=== PATIENT | female | born 1995 | race Caucasian/White ===

== ENCOUNTER → 2016-06-16 | Outpatient (CLI) | payer MEDICAID ==
--- NOTE | 2016-06-16 10:03 | US ---
EXAMINATION TYPE: US OB >= 14 wk fetus DATE OF EXAM: 06/16/2016 9:15 AM COMPARISON: 02/21/17 CLINICAL HISTORY: Large For Dates O36.63XO TECHNIQUE: TA GESTATIONAL AGE / DATING Physician Established: (35 weeks/0 days) EDC: 07/21/2016 Dates by LMP: unknown Dates by First Scan: (34 weeks/3 days) EDC: 07/25/2016 Dates by Current Scan: (35 weeks/0 days) EDC: 07/21/2016 SURVEY PLACENTA: fundal left sided PREVIA: no YVROSE: 15.2cm CERVICAL LENGTH (transabdominal: norm > 3.0cm): 3.5cm BIOMETRY PRESENTATION: veretex BPD: 9.0cm 36 weeks / 3 days HC: 32.1 cm 36 weeks / 2 days AC: 31.1 cm 35 weeks / 0 days FL: 6.2 cm 32 weeks / 1 days ESTIMATED WEIGHT IN GRAMS: 2446 grams ESTIMATED WEIGHT IN LBS/OZS: 5 lbs. 6 oz. WEIGHT PERCENTAGE BASED ON ESTABLISHED DATES: 32% HC/AC: 1.0 FL/AC: 20.0 HEART RATE: 126 bpm RHYTHM: Normal TECHNOLOGIST IMPRESSION: 35w0d fetus seen and appears wnl at this time IMPRESSION: 1. Single intrauterine gestation estimated at 35 weeks 0 days gestation based on the current ultrasou nd measurements. Cardiac activity measures 127 bpm. 2. Femur length is slightly shortened causing ratio abnormalities outside the normal range.
== END | disposition home or self-care (01) ==
LOC: RADUSWWP 08:55
PROVIDERS: ATTEND Obstetrics & Gynecology
DX: O36.63X0 Maternal care for excessive fetal growth, third trimester, not applicable or unspecified (principal); Z3A.35 35 weeks gestation of pregnancy
CPT/HCPCS: 76805

== ENCOUNTER 2016-07-23 06:00 | Inpatient (IN) | payer MEDICAID ==
[2016-07-23] MEDS ORDERED: CARBOPROST TROMETHAMINE 250 MCG/ML 1 ML AMP IM PRN (06:14)
[2016-07-23] MEDS ORDERED: METHYLERGONOVINE 0.2 MG/ML 1 ML AMP IM PRN (06:14)
[2016-07-23] MEDS ORDERED: TERBUTALINE 1 MG/ML VIAL SQ PRN (06:14)
[2016-07-23] MEDS ORDERED: OXYTOCIN 10 UNIT/ML 1 ML VIAL IM PRN (06:14)
[2016-07-23] MEDS ORDERED: LIDOCAINE 1% (PF) 10 MG/ML (30 ML SDV) SQ PRN (06:14)
[2016-07-23] MEDS ORDERED: OXYTOCIN 30 UNITS/500 ML NS 30 UNIT in SALINE 1 500ML.BAG IV SCH (06:15)
[2016-07-23 06:23] VITALS: BMI 27.8
[2016-07-23] MEDS: LACTATED RINGERS 1,000 ML IV SCH ×3 (06:36→10:10)
[2016-07-23 06:48] LABS: Basophils # (A) 0.1 k/uL (0-0.2); Basophils % (A) 0 %; CH 30.5; CHCM 33.7; Eosinophils # (A) 0.5 k/uL (0-0.7); Eosinophils % (A) 4 %; HCT 37.8 % (34.0-46.0); HGB 12.8 gm/dL (11.4-16.0); Luc # (Auto) 0.33; Luc % (Auto) 3; Lymphocytes % (A) 24 %; MCH 30.9 pg (25.0-35.0); MCV 90.9 fL (80.0-100.0); Monocytes # (A) 0.6 k/uL (0-1.0); Monocytes % (A) 5 %; Neutrophils # (A) 8.3 k/uL (1.3-7.7); Neutrophils % (A) 65 %; RBC 4.16 m/uL (3.80-5.40); RDW 12.8 % (11.5-15.5); WBC 12.8 k/uL (3.8-10.6); WBC (Perox) 13.61
--- NOTE | 2016-07-23 08:38 | P.HPOB ---
History of Present Illness H&P Date: 07/23/16 Chief Complaint: induction of labor 21-year-old presents at 30 weeks and 2 days for induction of labor. Her cervix is 1-2 cm dilated, 90% effaced, and -2 station. She is aries irregularly. heart tones are 135-140 with moderate variability and reactive. Review of Systems All systems: negative Constitutional: Denies chills, Denies fever Eyes: denies blurred vision, denies pain Ears, nose, mouth and throat: Denies headache, Denies sore throat Cardiovascular: Denies chest pain, Denies shortness of breath Respiratory: Denies cough Gastrointestinal: Denies abdominal pain, Denies diarrhea, Denies nausea, Denies vomiting Genitourinary: Denies dysuria, Denies hematuria Musculoskeletal: Denies myalgias Integumentary: Denies pruritus, Denies rash Neurological: Denies numbness, Denies weakness Psychiatric: Denies anxiety, Denies depression Endocrine: Denies fatigue, Denies weight change Past Medical History Past Medical History: No Reported History Additional Past Medical History / Comment(s): Obstetric history: This is her second . She's had care with me since the first trimester. History of Any Multi-Drug Resistant Organisms: None Reported Additional Past Surgical History / Comment(s): cyst removed from back Past Anesthesia/Blood Transfusion Reactions: No Reported Reaction Past Psychological History: No Psychological Hx Reported Smoking Status: Never smoker Past Alcohol Use History: None Reported Past Drug Use History: None Reported - Past Family History Mother Family Medical History: No Reported History Medications and Allergies Home Medications Medication Instructions Recorded Confirmed Type Pnv with Ca,No.72/Iron/FA 1 tab PO DAILY 02/20/16 07/23/16 History [ Plus Tablet] Allergies Allergy/AdvReac Type Severity Reaction Status Date / Time No Known Allergies Allergy Verified 07/23/16 06:13 Exam Osteopathic Statement: *. No significant issues noted on an osteopathic structural exam other than those noted in the History and Physical/Consult. - Vital Signs Vital signs: Vital Signs Temp Pulse Resp BP Pulse Ox 07/23/16 06:12 97.3 F L 90 17 122/62 98 Intake and Output 07/22/16 07/23/16 07/23/16 22:59 06:59 14:59 Other: Weight 71.214 kg Heart: Regular rate and rhythm Lungs: Clear to auscultation bilaterally Abdomen: Soft, nontender Extremities: Negative Homans sign Results Result Diagrams: 07/23/16 06:25 Abnormal Lab Results - Last 24 Hours (Table) 07/23/16 Range/Units 06:25 WBC 12.8 H (3.8-10.6) k/uL Neutrophils # 8.3 H (1.3-7.7) k/uL Assessment and Plan (1) Normal labor Status: Acute Plan: 1. Induction of labor with amniotomy and Pitocin. 2. Anticipate normal vaginal delivery.
[2016-07-23] MEDS ORDERED: SODIUM CHLORIDE 0.9% 100 ML BAG ONE (09:57)
[2016-07-23] MEDS ORDERED: BUPIVACAINE (PF) 0.25% 30 ML VIAL ONE (09:57)
[2016-07-23] MEDS ORDERED: fentaNYL (PF) 50 MCG/ML 5 ML AMP ONE (09:57)
[2016-07-23] MEDS ORDERED: BUPIVACAINE (PF) 0.25% 25 ML, fentaNYL (PF) 200 MCG in SODIUM CHLORIDE 0.9% 71 ML EPIDURAL ONE (11:44)
[2016-07-23] MEDS ORDERED: Rhogam IMMUNE GLOBULIN 1,500 UNIT/1 ML IM ONE (17:19)
[2016-07-23] MEDS ORDERED: Acetaminophen-Codeine 300-30mg TAB PO PRN ×2 (17:19)
[2016-07-23] MEDS ORDERED: LANOLIN CREAM 5 GM TUBE TOPICAL PRN (17:19)
[2016-07-23] MEDS ORDERED: diphenhydrAMINE 25 MG CAP PO PRN (17:19)
[2016-07-23] MEDS ORDERED: BENZOCAINE/MENTHOL SPRAY 1 GM/SPRAY AEROSOL TOPICAL PRN (17:19)
[2016-07-23] MEDS ORDERED: diphenhydrAMINE 50 MG CAP PO PRN (17:19)
[2016-07-23] MEDS ORDERED: ACETAMINOPHEN TAB 325 MG TAB PO PRN (17:19)
[2016-07-23] MEDS ORDERED: HYDROCORTISONE 2.5% RECTAL CREAM 30 GM TUBE RECTAL PRN (17:19)
[2016-07-23] MEDS ORDERED: WITCH HAZEL 1 EACH MED..PAD TOPICAL PRN (17:19)
[2016-07-23] MEDS ORDERED: diphenhydrAMINE 50 MG/ML 1 ML VIAL IVP PRN ×2 (17:19)
[2016-07-23] MEDS ORDERED: SIMETHICONE 80 MG CHEWABLE PO PRN (17:19)
[2016-07-23] MEDS ORDERED: ZOLPIDEM 5 MG TAB PO PRN (17:19)
[2016-07-23] MEDS ORDERED: DIPH,PERTUS(ACELL)TETVAC-LF 0.5 ML VIAL IM ONE (17:20)
--- NOTE | 2016-07-23 17:22 | P.PROBDLV ---
Vaginal Delivery Note - . Vaginal Delivery Note: 21-year-old presents at 40 weeks and 2 days for induction of labor. Her cervix was 2 cm dilated, 80% effaced, -2 station. She is aries irregularly. heart tones 135-140 with moderate variability and reactive. Amniotomy was performed at 7:54 AM clear fluid noted. Pitocin was also started. She progressed about 3 cm and did get an epidural. Her cervix was completely dilated at 1558. She pushed, and delivered a viable male infant over intact perineum under epidural anesthesia at 1701. Head delivered OA, anterior shoulder delivered gentle downward traction followed by posterior shoulder and rest of body. Nose and mouth bulb suctioned, cord clamped and cut , placed mother's abdomen. Apgars 8, 9, weight 7 lbs. 5 oz. Cord blood was obtained. Placenta delivered spontaneously, intact with three-vessel cord at 1704. Vagina, cervix, and perineum were inspected. Second-degree midline laceration was repaired with 200, and 3-0 Vicryl. Estimated blood loss 200 mL. Mother and baby in stable condition.
[2016-07-23] MEDS: OXYTOCIN 30 UNITS/500 ML NS 30 UNIT in SALINE 1 500ML.BAG IV SCH (17:43)
[2016-07-23] MEDS: SENNOSIDES-DOCUSATE SODIUM 1 EACH TAB PO SCH (19:40)
[2016-07-23] MEDS: IBUPROFEN 600 MG TAB PO PRN (22:11)
[2016-07-24] MEDS: OXYTOCIN 30 UNITS/500 ML NS 30 UNIT in SALINE 1 500ML.BAG IV SCH (01:39)
[2016-07-24] MEDS: IBUPROFEN 600 MG TAB PO PRN ×2 (07:22→15:18)
[2016-07-24] MEDS: SENNOSIDES-DOCUSATE SODIUM 1 EACH TAB PO SCH (07:22)
--- NOTE | 2016-07-24 08:30 | P.DS ---
Providers Date of admission: 07/23/16 06:09 Expected date of discharge: 07/24/16 Attending physician: No Bryson Primary care physician: Stated None - Discharge Diagnosis(es) (1) Normal labor Current Visit: Yes Status: Resolved (2) Normal vaginal delivery Current Visit: Yes Status: Acute Hospital Course: Patient presented for induction of labor at 40 weeks and 2 days. She underwent normal vaginal delivery. course was complicated by some urinary retention but this had resolved within 12 hours. Patient is now voiding and ambulating without difficulty. She denies nausea, vomiting, chest pain, fever, chills, shortness of breath or any calf pain. She'll be discharged home day #1 in stable condition to follow-up with me in 6 weeks. Plan - Discharge Summary New Discharge Prescriptions: Acetaminophen-Codeine 300-30mg [Tylenol #3] 2 tab PO Q6H PRN #30 tablet PRN Reason: Pain Ibuprofen [Motrin] 600 mg PO Q6HR PRN #30 tab PRN Reason: Mild Pain Or Fever >= 100.5 Discharge Medication List Pnv with Ca,No.72/Iron/FA [ Plus Tablet] 1 tab PO DAILY 02/20/16 [ History] Acetaminophen-Codeine 300-30mg [Tylenol #3] 2 tab PO Q6H PRN #30 tablet [Rx] Ibuprofen [Motrin] 600 mg PO Q6HR PRN #30 tab 07/24/16 [Rx] Follow up Appointment(s)/Referral(s): No Bryson DO [Doctor of Osteopathic Medicine] - 6 Weeks Discharge Disposition: HOME SELF-CARE
[2016-07-24 08:45] VITALS: RESP 16
[2016-07-24 19:00] VITALS: BP 100/65; PULSE 98; TEMP 98.4
== END 2016-07-24 18:00 | disposition home or self-care (01) | DRG 775 ==
LOC: 4FBP 06:09
PROVIDERS: ADMIT Obstetrics & Gynecology; ATTEND Obstetrics & Gynecology
PROC: 10E0XZZ Delivery of Products of Conception, External Approach (ICD-10-PCS; principal; 2016-07-23)
PROC: 0KQM0ZZ Repair Perineum Muscle, Open Approach (ICD-10-PCS; 2016-07-23)
PROC: 3E033VJ Introduction of Other Hormone into Peripheral Vein, Percutaneous Approach (ICD-10-PCS; 2016-07-23)
PROC: 10907ZC Drainage of Amniotic Fluid, Therapeutic from Products of Conception, Via Natural or Artificial Opening (ICD-10-PCS; 2016-07-23)
PROC: 3E0S3NZ Introduction of Analgesics, Hypnotics, Sedatives into Epidural Space, Percutaneous Approach (ICD-10-PCS; 2016-07-23)
PROC: 3E0234Z Introduction of Serum, Toxoid and Vaccine into Muscle, Percutaneous Approach (ICD-10-PCS; 2016-07-24)
DX: O70.1 Second degree perineal laceration during delivery (principal); Z37.0 Single live birth; O48.0 Post-term pregnancy; R33.9 Retention of urine, unspecified; Z3A.40 40 weeks gestation of pregnancy; Z23 Encounter for immunization
CPT/HCPCS: 85025; 88307; 90715

== ENCOUNTER 2016-11-23 16:25 | Emergency (ER) | payer MEDICAID ==
[2016-11-23] MEDS ORDERED: SODIUM CHLORIDE 0.9% 1,000 ML IV STA (17:04)
[2016-11-23] MEDS ORDERED: ONDANSETRON 4 MG/2 ML VIAL IVP STA (17:04)
[2016-11-23 17:36] LABS: Basophils % (A) 0 %; CHCM 33.7; Eosinophils # (A) 0.1 k/uL (0-0.7); Eosinophils % (A) 1 %; HCT 42.1 % (34.0-46.0); HDW 2.21; HGB 14.4 gm/dL (11.4-16.0); Luc # (Auto) 0.19; Luc % (Auto) 1; Lymphocytes % (A) 16 %; MCH 29.4 pg (25.0-35.0); MCHC 34.1 g/dL (31.0-37.0); MCV 86.3 fL (80.0-100.0); Mean Platelet Volume 8.2; Monocytes # (A) 0.6 k/uL (0-1.0); Monocytes % (A) 4 %; Neutrophils # (A) 10.3 k/uL (1.3-7.7); Neutrophils % (A) 78 %; RBC 4.88 m/uL (3.80-5.40); RDW 12.8 % (11.5-15.5); WBC 13.2 k/uL (3.8-10.6); WBC (Perox) 13.18
[2016-11-23 17:40] LABS: Amorphous Sediment,Urine Rare /hpf; Appearance,Urine Cloudy (Clear); Bilirubin,Urine Negative (Negative); Glucose,Urine (UA) Negative (Negative); Ketones,Urine 1+ (Negative); Leukocyte Esterase,Urine Negative (Negative); Mucus,Urine Rare /hpf; Nitrite,Urine Negative (Negative); Particle Count 3338; Protein,Urine 1+ (Negative); RBC,Urine 1 /hpf (0-5); Specific Gravity,Urine 1.015 (1.001-1.035); Squamous Epithelial Cell,Urine 4 /hpf (0-4); UA Billing (MACRO vs. MICRO) MICRO; Urobilinogen,Urine <2.0 mg/dL (<2.0); WBC,Urine 5 /hpf (0-5)
[2016-11-23 17:46] LABS: ALT 58 U/L (9-52); AST 45 U/L (14-36); Alkaline Phosphatase 110 U/L (38-126); Anion Gap 12 mmol/L; Blood Urea Nitrogen 11 mg/dL (7-17); Calcium 10.2 mg/dL (8.4-10.2); Carbon Dioxide 24 mmol/L (22-30); Chloride 104 mmol/L (98-107); Glucose 90 mg/dL (74-99); Non-African American GFR(MDRD) >60 (>60 ml/min/1.73 sqM); Potassium 3.7 mmol/L (3.5-5.1); Sodium 140 mmol/L (137-145); Total Bilirubin 0.8 mg/dL (0.2-1.3); Total Protein 7.6 g/dL (6.3-8.2)
[2016-11-23 17:53] VITALS: BP 113/66; PULSE 76; RESP 16; TEMP 98.2
--- NOTE | 2016-11-23 18:02 | ED ---
General Adult HPI - General Chief complaint: Anxiety Stated complaint: Anxiety Time Seen by Provider: 11/23/16 16:57 Source: patient, RN notes reviewed Mode of arrival: EMS Limitations: no limitations - History of Present Illness Initial comments: 21-year-old female presents emergency room chief complaint of anxiety. Patient states that she drank last night and she's been throwing up all day today. Patient states that for the covers that she did throw up and she started having anxiety attack that she was throwing up her hands and feet went numb and she started to have some shortness of breath. Patient states once EMS got there she started to calm down the shortness of breath has completely gone as well as the medicine tingling in her hands and feet. Patient states that she still having some nausea. Patient denies any abdominal pain. Patient states that she believes it's due to the fact that she was drinking over the weekend evening before. Patient denies any other health concerns at this time. Patient denies any recent fever, chills, shortness of breath, chest pain, back pain, abdominal pain, numbness or tingling, dysuria or hematuria, constipation or diarrhea, headaches or visual changes, or any other current symptoms. - Related Data Home Medications Medication Instructions Recorded Confirmed Orsythia 1 tab PO DAILY 11/23/16 11/23/16 Allergies Allergy/AdvReac Type Severity Reaction Status Date / Time No Known Allergies Allergy Verified 11/23/16 17:17 Review of Systems ROS Statement: Those systems with pertinent positive or pertinent negative responses have been documented in the HPI. ROS Other: All systems not noted in ROS Statement are negative. Past Medical History Past Medical History: No Reported History Additional Past Medical History / Comment(s): Obstetric history: This is her second . She's had care with me since the first trimester. History of Any Multi-Drug Resistant Organisms: None Reported Additional Past Surgical History / Comment(s): cyst removed from back Past Anesthesia/Blood Transfusion Reactions: No Reported Reaction Past Psychological History: No Psychological Hx Reported Smoking Status: Never smoker Past Alcohol Use History: None Reported Past Drug Use History: None Reported - Past Family History Mother Family Medical History: No Reported History General Exam Limitations: no limitations General appearance: alert, in no apparent distress Head exam: Present: atraumatic, normocephalic, normal inspection Neck exam: Present: normal inspection. Absent: tenderness, meningismus, lymphadenopathy Respiratory exam: Present: normal lung sounds bilaterally. Absent: respiratory distress, wheezes, rales, rhonchi, stridor Cardiovascular Exam: Present: regular rate, normal rhythm, normal heart sounds. Absent: systolic murmur, diastolic murmur, rubs, gallop, clicks GI/Abdominal exam: Present: soft, normal bowel sounds. Absent: distended, tenderness, guarding, rebound, rigid Extremities exam: Present: normal inspection, full ROM, normal capillary refill. Absent: tenderness, pedal edema, joint swelling, calf tenderness Back exam: Present: normal inspection Neurological exam: Present: alert, oriented X3, CN II-XII intact Psychiatric exam: Present: normal affect, normal mood Skin exam: Present: warm, dry, intact, normal color. Absent: rash Course Vital Signs 11/23/16 11/23/16 16:29 17:51 Temperature 98.5 F 98.2 F Pulse Rate 85 76 Respiratory 18 16 Rate Blood Pressure 117/78 113/66 O2 Sat by Pulse 99 100 Oximetry Medical Decision Making - Medical Decision Making 21-year-old female presents emergency Department chief complaint of anxiety as well nausea vomiting. This and we did hydrate the patient reviewed her labs. We did discuss Elevated liver enzymes. Please follow-up and and return parameters. Patient's elevated white blood cell count is most likely reactive due to the vomiting. At this time we did discuss this with the patient and she is negative. The plan. At this time on her questions have been answered. At this time the patient is comfortable discharging she will be discharged home. - Lab Data Result diagrams: 11/23/16 17:10 11/23/16 17:10 Lab Results 11/23/16 11/23/16 11/23/16 Range/Units 17:10 17:10 17:10 WBC 13.2 H (3.8-10.6) k/uL RBC 4.88 (3.80-5.40) m/uL Hgb 14.4 (11.4-16.0) gm/dL Hct 42.1 (34.0-46.0) % MCV 86.3 (80.0-100.0) fL MCH 29.4 (25.0-35.0) pg MCHC 34.1 (31.0-37.0) g/dL RDW 12.8 (11.5-15.5) % Plt Count 251 (150-450) k/uL Neutrophils % 78 % Lymphocytes % 16 % Monocytes % 4 % Eosinophils % 1 % Basophils % 0 % Neutrophils # 10.3 H (1.3-7.7) k/uL Lymphocytes # 2.0 (1.0-4.8) k/uL Monocytes # 0.6 (0-1.0) k/uL Eosinophils # 0.1 (0-0.7) k/uL Basophils # 0.0 (0-0.2) k/uL Sodium 140 (137-145) mmol/L Potassium 3.7 (3.5-5.1) mmol/L Chloride 104 (98-107) mmol/L Carbon Dioxide 24 (22-30) mmol/L Anion Gap 12 mmol/L BUN 11 (7-17) mg/dL Creatinine 0.60 (0.52-1.04) mg/dL Est GFR (MDRD) Af Amer >60 (>60 ml/min/1.73 sqM) Est GFR (MDRD) Non-Af >60 (>60 ml/min/1.73 sqM) Glucose 90 (74-99) mg/dL Calcium 10.2 (8.4-10.2) mg/dL Total Bilirubin 0.8 (0.2-1.3) mg/dL AST 45 H (14-36) U/L ALT 58 H (9-52) U/L Alkaline Phosphatase 110 (38-126) U/L Total Protein 7.6 (6.3-8.2) g/dL Albumin 4.4 (3.5-5.0) g/dL Urine Color Urine Appearance (Clear) Urine pH (5.0-8.0) Ur Specific [place] (1.001-1.035) Urine Protein (Negative) Urine Glucose (UA) (Negative) Urine Ketones (Negative) Urine Blood (Negative) Urine Nitrite (Negative) Urine Bilirubin (Negative) Urine Urobilinogen (<2.0) mg/dL Ur Leukocyte Esterase (Negative) Urine RBC (0-5) /hpf Urine WBC (0-5) /hpf Ur Squamous Epith Cells (0-4) /hpf Amorphous Sediment (None) /hpf Urine Mucus (None) /hpf Urine HCG, Qual Not Detected (Not Detectd) 11/23/16 Range/Units 17:10 WBC (3.8-10.6) k/uL RBC (3.80-5.40) m/uL Hgb (11.4-16.0) gm/dL Hct (34.0-46.0) % MCV (80.0-100.0) fL MCH (25.0-35.0) pg MCHC (31.0-37.0) g/dL RDW (11.5-15.5) % Plt Count (150-450) k/uL Neutrophils % % Lymphocytes % % Monocytes % % Eosinophils % % Basophils % % Neutrophils # (1.3-7.7) k/uL Lymphocytes # (1.0-4.8) k/uL Monocytes # (0-1.0) k/uL Eosinophils # (0-0.7) k/uL Basophils # (0-0.2) k/uL Sodium (137-145) mmol/L Potassium (3.5-5.1) mmol/L Chloride (98-107) mmol/L Carbon Dioxide (22-30) mmol/L Anion Gap mmol/L BUN (7-17) mg/dL Creatinine (0.52-1.04) mg/dL Est GFR (MDRD) Af Amer (>60 ml/min/1.73 sqM) Est GFR (MDRD) Non-Af (>60 ml/min/1.73 sqM) Glucose (74-99) mg/dL Calcium (8.4-10.2) mg/dL Total Bilirubin (0.2-1.3) mg/dL AST (14-36) U/L ALT (9-52) U/L Alkaline Phosphatase (38-126) U/L Total Protein (6.3-8.2) g/dL Albumin (3.5-5.0) g/dL Urine Color Yellow Urine Appearance Cloudy H (Clear) Urine pH 8.0 (5.0-8.0) Ur Specific [place] 1.015 (1.001-1.035) Urine Protein 1+ H (Negative) Urine Glucose (UA) Negative (Negative) Urine Ketones 1+ H (Negative) Urine Blood Negative (Negative) Urine Nitrite Negative (Negative) Urine Bilirubin Negative (Negative) Urine Urobilinogen <2.0 (<2.0) mg/dL Ur Leukocyte Esterase Negative (Negative) Urine RBC 1 (0-5) /hpf Urine WBC 5 (0-5) /hpf Ur Squamous Epith Cells 4 (0-4) /hpf Amorphous Sediment Rare H (None) /hpf Urine Mucus Rare H (None) /hpf Urine HCG, Qual (Not Detectd) Disposition Clinical Impression: Nausea & vomiting, Acute anxiety Disposition: HOME SELF-CARE Condition: Stable Instructions: Acute Nausea and Vomiting (ED) Additional Instructions: Please use medication as discussed. Please follow up with family doctor if symptoms have not improved over the next two days. Please return to the emergency room if your symptoms increase or worsen or for any other concerns. Referrals: Karla Gutierrez MD [Primary Care Provider] - 1-2 days Time of Disposition: 18:02
== END 2016-11-23 18:18 | disposition home or self-care (01) ==
LOC: EC 16:25
DX: F41.9 Anxiety disorder, unspecified (principal); R11.2 Nausea with vomiting, unspecified; Z79.3 Long term (current) use of hormonal contraceptives
CPT/HCPCS: 36415; 80053; 85025; 81001; 81025; 99283; 96374; 96361; J2405

== ENCOUNTER 2017-02-12 03:23 | Emergency (ER) | payer MEDICAID ==
[2017-02-12 03:35] VITALS: BP 120/75; PULSE 80; RESP 16; TEMP 99.3
[2017-02-12] MEDS ORDERED: PANTOPRAZOLE 40 MG/10 ML VIAL IVP STA (03:50)
[2017-02-12] MEDS ORDERED: SODIUM CHLORIDE 0.9% 1,000 ML IV STA ×2 (03:50)
[2017-02-12] MEDS ORDERED: HYDROmorphone 1 MG/ML 1 ML SYRINGE IVP STA (03:50)
[2017-02-12] MEDS ORDERED: METOCLOPRAMIDE 5 MG/ML 2 ML VIAL IVP STA (03:50)
[2017-02-12] MEDS ORDERED: MAG HYDROX/AL HYDROX/SIMETH 30 ML, HYOSCYAMINE ELIXIR 10 ML, CIMETIDINE HCL 300 MG, LID... PO STA ×4 (03:53)
[2017-02-12 04:04] LABS: Basophils # (A) 0.1 k/uL (0-0.2); Basophils % (A) 1 %; CH 29.3; CHCM 33.2; Eosinophils # (A) 0.9 k/uL (0-0.7); Eosinophils % (A) 9 %; HCT 41.6 % (34.0-46.0); HDW 2.25; Luc # (Auto) 0.17; Luc % (Auto) 2; Lymphocytes # (A) 3.5 k/uL (1.0-4.8); Lymphocytes % (A) 36 %; MCH 29.8 pg (25.0-35.0); MCHC 33.7 g/dL (31.0-37.0); MCV 88.5 fL (80.0-100.0); Mean Platelet Volume 8.5; Monocytes # (A) 0.4 k/uL (0-1.0); Monocytes % (A) 5 %; Neutrophils # (A) 4.7 k/uL (1.3-7.7); Neutrophils % (A) 49 %; RDW 12.7 % (11.5-15.5); WBC 9.7 k/uL (3.8-10.6); WBC (Perox) 9.66
[2017-02-12 04:23] LABS: ALT 27 U/L (9-52); AST 20 U/L (14-36); Alkaline Phosphatase 99 U/L (38-126); Amylase 64 U/L (30-110); Anion Gap 9 mmol/L; Blood Urea Nitrogen 12 mg/dL (7-17); C Reactive Protein <5.0 mg/L (<10.0); Calcium 9.7 mg/dL (8.4-10.2); Carbon Dioxide 23 mmol/L (22-30); Chloride 105 mmol/L (98-107); Glucose 103 mg/dL (74-99); Non-African American GFR(MDRD) >60 (>60 ml/min/1.73 sqM); Potassium 3.5 mmol/L (3.5-5.1); Sodium 137 mmol/L (137-145); Total Bilirubin 0.4 mg/dL (0.2-1.3); Total Protein 6.9 g/dL (6.3-8.2)
[2017-02-12 04:47] LABS: Appearance,Urine Cloudy (Clear); Bacteria,Urine Rare /hpf; Bilirubin,Urine Negative (Negative); Glucose,Urine (UA) Negative (Negative); Ketones,Urine Negative (Negative); Leukocyte Esterase,Urine Small (Negative); Mucus,Urine Rare /hpf; Nitrite,Urine Negative (Negative); Particle Count 3026; Protein,Urine Negative (Negative); RBC,Urine <1 /hpf (0-5); Specific Gravity,Urine 1.015 (1.001-1.035); Squamous Epithelial Cell,Urine 4 /hpf (0-4); UA Billing (MACRO vs. MICRO) MICRO; Urobilinogen,Urine <2.0 mg/dL (<2.0); WBC,Urine 6 /hpf (0-5)
--- NOTE | 2017-02-12 05:06 | XR ---
EXAM: XR Abdomen, 1 View CLINICAL HISTORY: Reason: abdominal pain TECHNIQUE: Frontal supine view of the abdomen/pelvis. COMPARISON: No relevant prior studies available. FINDINGS: Gastrointestinal tract: Unremarkable. No dilation. Bones/joints: Unremarkable. IMPRESSION: Scattered stool throughout the colon. No other acute disease or bowel obstruction.
[2017-02-12] MEDS ORDERED: oxyCODONE-APAP 7.5-325MG 1 EACH TAB PO STA (05:47)
--- NOTE | 2017-02-12 05:47 | ED ---
Abdominal Pain HPI - General Chief Complaint: Abdominal Pain Stated Complaint: abd pain Time Seen by Provider: 02/12/17 03:44 Source: patient Mode of arrival: ambulatory Limitations: no limitations - History of Present Illness Initial Comments: 21 years old female presented with epigastric pain, it started about 4 hours ago she is complaining about nausea and she threw up about 6 times she had [employer] for supper last night she denies any fever no chills no diarrhea she hasn't had any cough over the last 24 hours. She has a history of similar pain in the past and a GI cocktail helped her that time. She has no history of Crohn 's disease or ulcerative colitis she denies any abdominal surgeries in the past. - Related Data Home Medications Medication Instructions Recorded Confirmed Orsythia 1 tab PO DAILY 11/23/16 11/23/16 Previous Rx's Medication Instructions Recorded Pantoprazole [Protonix] 40 mg PO DAILY #30 tablet. 02/12/17 Allergies Allergy/AdvReac Type Severity Reaction Status Date / Time No Known Allergies Allergy Verified 11/23/16 17:17 Review of Systems ROS Statement: Those systems with pertinent positive or pertinent negative responses have been documented in the HPI. ROS Other: All systems not noted in ROS Statement are negative. Past Medical History Past Medical History: No Reported History Additional Past Medical History / Comment(s): Obstetric history: This is her second . She's had care with me since the first trimester. History of Any Multi-Drug Resistant Organisms: None Reported Additional Past Surgical History / Comment(s): cyst removed from back Past Anesthesia/Blood Transfusion Reactions: No Reported Reaction Past Psychological History: No Psychological Hx Reported Smoking Status: Never smoker Past Alcohol Use History: None Reported Past Drug Use History: None Reported - Past Family History Mother Family Medical History: No Reported History General Exam - General Exam Comments Initial Comments: General: The patient is awake and alert, in no distress, and does not appear acutely ill. Skin: Skin is warm and dry and no rashes or lesions are noted. Eye: Pupils are equal, round and reactive to light, extra-ocular movements are intact; there is normal conjunctiva bilaterally. Ears, nose, mouth and throat: There are moist mucous membranes and no oral lesions. Neck: The neck is supple, there is no tenderness or JVD. Cardiovascular: There is a regular rate and rhythm. No murmur, rub or gallop is appreciated. Respiratory: To auscultation bilateral, no wheezing no rhonchi no distress respiratory ch noticed Gastrointestinal: Tender in epigastric area Back: There is no tenderness to palpation in the midline. There is no obvious deformity. Musculoskeletal: Normal ROM, no tenderness, There is no pedal edema. There is no calf tenderness or swelling. No cords were appreciated. Neurological: CN II-XII intact, Cranial nerves III through XII are intact. There are no obvious motor or sensory deficits. Coordination appears grossly intact. Speech is normal. Psychiatric: Cooperative, appropriate mood & affect, normal judgment. Limitations: no limitations Course Vital Signs 02/12/17 03:32 Temperature 99.3 F Pulse Rate 80 Respiratory 16 Rate Blood Pressure 120/75 O2 Sat by Pulse 99 Oximetry The patient was reassessed at term #30 5 in the morning, her CBC, comprehensive metabolic panel, C-reactive protein and urinalysis are unremarkable this point patient still has some pain patient was offered more pain medication as well as CT of the abdomen. Considering radiation patient wants to hold off the CT of the abdomen and pelvis she was requiring any GERD medication and noted she will follow with her family doctor [facility]. Plan Medical Decision Making - Lab Data Result diagrams: 02/12/17 03:47 02/12/17 03:47 Lab Results 02/12/17 02/12/17 02/12/17 Range/Units 03:47 03:47 04:20 WBC 9.7 (3.8-10.6) k/uL RBC 4.70 (3.80-5.40) m/uL Hgb 14.0 (11.4-16.0) gm/dL Hct 41.6 (34.0-46.0) % MCV 88.5 (80.0-100.0) fL MCH 29.8 (25.0-35.0) pg MCHC 33.7 (31.0-37.0) g/dL RDW 12.7 (11.5-15.5) % Plt Count 244 (150-450) k/uL Neutrophils % 49 % Lymphocytes % 36 % Monocytes % 5 % Eosinophils % 9 % Basophils % 1 % Neutrophils # 4.7 (1.3-7.7) k/uL Lymphocytes # 3.5 (1.0-4.8) k/uL Monocytes # 0.4 (0-1.0) k/uL Eosinophils # 0.9 H (0-0.7) k/uL Basophils # 0.1 (0-0.2) k/uL Sodium 137 (137-145) mmol/L Potassium 3.5 (3.5-5.1) mmol/L Chloride 105 (98-107) mmol/L Carbon Dioxide 23 (22-30) mmol/L Anion Gap 9 mmol/L BUN 12 (7-17) mg/dL Creatinine 0.60 (0.52-1.04) mg/dL Est GFR (MDRD) Af Amer >60 (>60 ml/min/1.73 sqM) Est GFR (MDRD) Non-Af >60 (>60 ml/min/1.73 sqM) Glucose 103 H (74-99) mg/dL Calcium 9.7 (8.4-10.2) mg/dL Total Bilirubin 0.4 (0.2-1.3) mg/dL AST 20 (14-36) U/L ALT 27 (9-52) U/L Alkaline Phosphatase 99 (38-126) U/L C-Reactive Protein <5.0 (<10.0) mg/L Total Protein 6.9 (6.3-8.2) g/dL Albumin 4.1 (3.5-5.0) g/dL Amylase 64 (30-110) U/L Lipase 106 (23-300) U/L Urine Color Yellow Urine Appearance Cloudy H (Clear) Urine pH 6.0 (5.0-8.0) Ur Specific [place] 1.015 (1.001-1.035) Urine Protein Negative (Negative) Urine Glucose (UA) Negative (Negative) Urine Ketones Negative (Negative) Urine Blood Negative (Negative) Urine Nitrite Negative (Negative) Urine Bilirubin Negative (Negative) Urine Urobilinogen <2.0 (<2.0) mg/dL Ur Leukocyte Esterase Small H (Negative) Urine RBC <1 (0-5) /hpf Urine WBC 6 H (0-5) /hpf Ur Squamous Epith Cells 4 (0-4) /hpf Urine Bacteria Rare H (None) /hpf Urine Mucus Rare H (None) /hpf Urine HCG, Qual (Not Detectd) 02/12/17 Range/Units 04:20 WBC (3.8-10.6) k/uL RBC (3.80-5.40) m/uL Hgb (11.4-16.0) gm/dL Hct (34.0-46.0) % MCV (80.0-100.0) fL MCH (25.0-35.0) pg MCHC (31.0-37.0) g/dL RDW (11.5-15.5) % Plt Count (150-450) k/uL Neutrophils % % Lymphocytes % % Monocytes % % Eosinophils % % Basophils % % Neutrophils # (1.3-7.7) k/uL Lymphocytes # (1.0-4.8) k/uL Monocytes # (0-1.0) k/uL Eosinophils # (0-0.7) k/uL Basophils # (0-0.2) k/uL Sodium (137-145) mmol/L Potassium (3.5-5.1) mmol/L Chloride (98-107) mmol/L Carbon Dioxide (22-30) mmol/L Anion Gap mmol/L BUN (7-17) mg/dL Creatinine (0.52-1.04) mg/dL Est GFR (MDRD) Af Amer (>60 ml/min/1.73 sqM) Est GFR (MDRD) Non-Af (>60 ml/min/1.73 sqM) Glucose (74-99) mg/dL Calcium (8.4-10.2) mg/dL Total Bilirubin (0.2-1.3) mg/dL AST (14-36) U/L ALT (9-52) U/L Alkaline Phosphatase (38-126) U/L C-Reactive Protein (<10.0) mg/L Total Protein (6.3-8.2) g/dL Albumin (3.5-5.0) g/dL Amylase (30-110) U/L Lipase (23-300) U/L Urine Color Urine Appearance (Clear) Urine pH (5.0-8.0) Ur Specific [place] (1.001-1.035) Urine Protein (Negative) Urine Glucose (UA) (Negative) Urine Ketones (Negative) Urine Blood (Negative) Urine Nitrite (Negative) Urine Bilirubin (Negative) Urine Urobilinogen (<2.0) mg/dL Ur Leukocyte Esterase (Negative) Urine RBC (0-5) /hpf Urine WBC (0-5) /hpf Ur Squamous Epith Cells (0-4) /hpf Urine Bacteria (None) /hpf Urine Mucus (None) /hpf Urine HCG, Qual Not Detected (Not Detectd) Disposition Clinical Impression: Epigastric pain Disposition: HOME SELF-CARE Condition: Good Instructions: Abdominal Pain (ED) Additional Instructions: She is advised to follow-up with family doctor or come to the ER if her symptoms get worse she agreed with Prescriptions: Pantoprazole [Protonix] 40 mg PO DAILY #30 tablet.dr Referrals: Karla Gutierrez MD [Primary Care Provider] - 1-2 days
[2017-02-12] MEDS ORDERED: Acetaminophen-Codeine 300-30mg TAB PO STA (05:56)
== END 2017-02-12 06:11 | disposition home or self-care (01) ==
LOC: EC 03:23
DX: R10.13 Epigastric pain (principal); R11.0 Nausea; Z79.3 Long term (current) use of hormonal contraceptives
CPT/HCPCS: 36415; 80053; 82150; 83690; 85025; 86140; 81001; 81025; 74000; 99284; 96374; 96375 ×2; 96361 ×2; J2765; J1170; C9113

== ENCOUNTER → 2017-08-25 | Outpatient (CLI) | payer MEDICAID ==
--- NOTE | 2017-08-03 08:48 | US ---
EXAMINATION TYPE: US OB anatomy transabd DATE OF EXAM: 08/03/2017 COMPARISON: NONE HISTORY: O36.62 Z36 confirm dates Confirm dates. LGA TECHNIQUE: Transabdominal (TA) EXAM MEASUREMENTS: GESTATIONAL AGE / DATING Physician Established: not yet established Dates by LMP: unknown Dates by First Scan: no prior Dates by Current Scan for: (17 weeks/3 days) EDC: 01/08/18 SURVEY IUP: Single PLACENTA: Posterior PREVIA: Low Lying YVROSE: 10.6 cm Normal CERVICAL LENGTH (transabdominal: norm > 3.0cm): 3.2 cm BIOMETRY PRESENTATION: Vertex LIE: Transverse lie with head maternal LT BPD: 3.8 cm 17 weeks / 4 days HC: 13.7 cm 17 weeks / 1 days AC: 11.9 cm 17 weeks / 5 days FL: 2.4 cm 17 weeks / 2 days ESTIMATED WEIGHT IN GRAMS: 194 grams ESTIMATED WEIGHT IN LBS/OZ: 0 lbs. 7 oz. HC/AC: 1.15 Normal FL/AC: 20.08 Normal HEART RATE: 150 bpm RHYTHM: Normal ANATOMY SEEN (within normal limits): * Lateral Vent (< 1 cm) 0.7 cm * Cisterna Magna (< 1.1 cm) 0.3 cm * Nuchal Fold (< 0.6 cm) 0.3 cm * Cerebellum (varies with age) 1.6 cm Choroid Plexus (bilateral) Four Chamber Heart Outflow tracts: LVOT/RVOT Stomach Situs Diaphragm Kidneys (bilateral) Bladder Cord Insert Three Vessel Cord Longitudinal Spine Transverse Spine Arms (bilateral) Legs (bilateral) ANATOMY NOT SEEN: due to position and age Midline Falx Cavus Septi Pellucidi Nose / Lips Patient returning for OB callback on 08/17/17 at 7:00am IMPRESSION: Single live intrauterine with a calculated sonographic age of 17 weeks and 3 days and estim ated date of delivery of 01/08/2018. Anatomy not seen due to position and age including midline falx, cavum septum pellucidum, nose, and lips. Patient returning for OB callback on 08/17/17 at 7:00 am
--- NOTE | 2017-08-25 08:29 | US ---
EXAMINATION TYPE: US OB Call Back DATE OF EXAM: 08/25/2017 COMPARISON: US 08/03/2017 CLINICAL HISTORY: O36.62 Z36 confirm dates /ob callback. GESTATIONAL AGE / DATING Dates by Initial Survey Scan: (20 weeks/4 days) EDC: 01/08/2018 HEART RATE: 140 bpm RHYTHM: Normal ANATOMY SEEN (second anatomic survey look): Midline Falx Cavus Septi Pellucidi Nose / Lips IMPRESSION: Single live intrauterine with a sonographic gestational age of 20 weeks and 4 days and sam mated date of delivery of 01/08/2018. Additional anatomy visualized.
== END | disposition home or self-care (01) ==
LOC: RADUSWWP 08-03 06:56
PROVIDERS: ATTEND Obstetrics & Gynecology
DX: O36.62X0 Maternal care for excessive fetal growth, second trimester, not applicable or unspecified (principal); Z3A.20 20 weeks gestation of pregnancy
CPT/HCPCS: 76811

== ENCOUNTER → 2017-09-28 | Outpatient (CLI) | payer MEDICAID ==
[2017-09-28 09:08] LABS: HCT 33.5 % (34.0-46.0); HGB 11.3 gm/dL (11.4-16.0); MCH 30.7 pg (25.0-35.0); MCHC 33.7 g/dL (31.0-37.0); MCV 91.1 fL (80.0-100.0); Mean Platelet Volume 8.5; Platelet Count 237 k/uL (150-450); RBC 3.67 m/uL (3.80-5.40); WBC 12.1 k/uL (3.8-10.6)
[2017-09-28 17:36] LABS: HIV AB P24 Non-Reactive (Non-Reactive); HIV P24 AG Non-Reactive (Non-Reactive)
== END | disposition home or self-care (01) ==
LOC: LABWHC1 07:40
PROVIDERS: ATTEND Obstetrics & Gynecology
DX: O26.812 Pregnancy related exhaustion and fatigue, second trimester (principal); Z3A.00 Weeks of gestation of pregnancy not specified
CPT/HCPCS: 36415; 82565; 82950; 85027; 86762; 86780; 86850; 86900; 86901; 87340; 87390

== ENCOUNTER 2017-11-25 22:30 | Outpatient (CLI) | payer MEDICAID ==
[2017-11-25 22:50] VITALS: BP 114/68; PULSE 89; RESP 16; TEMP 96.9
--- NOTE | 2017-11-26 11:34 | P.MSEPDOC ---
Presenting Problems - Arrival Data Date of Arrival on Unit: 11/25/17 Time of Arrival on Unit: 22:30 Mode of Transport: Ambulatory - Complaint OB-Reason for Admission/Chief Complaint: Vaginal Bleeding Medical History - Information : 3 Para: 1 Term: 1 : 0 Abortions: Spontaneous or Elective: 1 Number of Living Children: 1 - Gestational Age Gestational Age by BRIE (wks/days): 33 Weeks and 6 Days Review of Systems - Review of Systems Constitutional: No problems Breast: No problems ENT: No problems Cardiovascular: No problems Respiratory: No problems Gastrointestinal: No problems Genitourinary: No problems Musculoskeletal: No problems Neurological: No problems Skin: No problems Vital Signs - Temperature Temperature: 96.9 F Temperature Source: Temporal Artery Scan - Pulse Right Brachial Pulse Rate: 89 Pulse Assessment Method: Automatic Cuff - Respirations Respiratory Rate: 16 Oxygen Delivery Method: Room Air - Blood Pressure Right Arm Blood Pressure: 114/68 Blood Pressure Mean: 83 Blood Pressure Source: Automatic Cuff Medical Screen Scoring (Pre) - Cervical Exam Dilation: 1-3 cm = 1 Effacement: More than 50% = 2 Membranes: Intact - Uterine Contractions Frequency: > 5 minutes apart = 1 - Maternal Vital Signs Maternal Temperature: N/A Maternal Blood Pressure: N/A - Pain Assessment Pain Scale Used: Numeric (1 - 10) Pain Intensity: 0 Pain Behavior: None Exhibited - Assessment Baseline FHR: 135 Heart Rate - NICHD Category: Category I (Normal) = 0 NST: Reactive - Total Score Total Score (Pre): 4 - Level of Risk Level of Risk: Low (0-5) Physician Notification (Pre) - Physician Notified Physician Notified Date: 11/25/17 Physician Notified Time: 22:49 Physician/Practitioner Notifed:: at bedside Spoke With: Braydon Bess Order Received: No Physician Notification (Post) - Physician Notified Physician Notified Date: 11/26/17 Physician Notified Time: 00:13 Physician/Practitioner Notified:: DR DOSHI Disposition - Disposition OB Disposition: Discharge to home, Written follow up instructions reviewed Discharge Date: 11/26/17 Discharge Time: 00:15 I agree with the RN Medical Screening Exam: Yes Physician's MSE Comment: I saw this patient myself in triage. Cervical exam was /-3. FFN was performed by myself and negative. NST was reactive. The toco showed irritability. She was not visibly uncomfortable and I did not visualize any leaking of fluid or bleeding. Risk & Benefit of care provided described in d/c instruction: Yes Diagnosis: FALSE LABOR BEFORE 37 COMPLETED WEEKS OF GEST, THIRD TRI
== END 2017-11-26 00:15 | disposition home or self-care (01) ==
LOC: FBPOP 22:30
PROVIDERS: ATTEND Obstetrics & Gynecology
DX: O47.03 False labor before 37 completed weeks of gestation, third trimester (principal); Z3A.33 33 weeks gestation of pregnancy
CPT/HCPCS: 59025; 82731; 99213

== ENCOUNTER → 2017-12-04 | Outpatient (CLI) | payer MEDICAID ==
--- NOTE | 2017-12-04 16:56 | US ---
EXAMINATION TYPE: US OB >= 14 wk fetus DATE OF EXAM: 12/04/2017 COMPARISON: None. CLINICAL HISTORY: O36.63X0 LARGE FOR DATESGrowth TECHNIQUE: Transabdominal (TA) GESTATIONAL AGE / DATING Physician Established: (35 weeks/0 days) EDC: 01/08/2018 Dates by Current Scan: (34 weeks/0 days) EDC: 01/15/2018 SURVEY IUP: Single PLACENTA: Fundal/Posterior PREVIA: No Previa YVROSE: cm CERVICAL LENGTH (transabdominal: norm > 3.0cm): 2.9 cm BIOMETRY PRESENTATION: Vertex LIE: Longitudinal BPD: 8.7 cm 35 weeks / 0 days HC: 31.1 cm 34 weeks / 5 days AC: 30.7 cm 34 weeks / 5 days FL: 6.6 cm 33 weeks / 6 days ESTIMATED WEIGHT IN GRAMS: 2439 grams ESTIMATED WEIGHT IN LBS/OZ: 5 lbs. 6 oz. WEIGHT PERCENTAGE BASED ON ESTABLISHED DATES: 31.7% HC/AC: 1.0 Normal in a vertex lie with a gestational age of 34 weeks +/- 3 weeks. Estimated date of c onfinement based on this examination is 01/15/2018 FL/AC: 21.4 Normal HEART RATE: 161 bpm RHYTHM: Normal Single live IUP measuring 34 weeks 0 days. Cervix appears slightly shortened at 2.9 cm. IMPRESSION: SALES FETUS IN A VERTEX PRESENTATION WITH A GESTATIONAL AGE OF 34 WEEKS +/- 3 WEEKS. ESTIMATED DA TE OF CONFINEMENT BASED ON THIS EXAMINATION IS 01/15/2018.
== END | disposition home or self-care (01) ==
LOC: RADUSWWP 16:17
PROVIDERS: ATTEND Obstetrics & Gynecology
DX: O36.63X0 Maternal care for excessive fetal growth, third trimester, not applicable or unspecified (principal); Z3A.34 34 weeks gestation of pregnancy
CPT/HCPCS: 76805

== ENCOUNTER → 2017-12-08 | Outpatient (CLI) | payer MEDICAID ==
[2017-12-08 21:24] VITALS: BP 121/72; PULSE 130; RESP 16; TEMP 97.5
[2017-12-08 22:07] LABS: Appearance,Urine Clear (Clear); Bilirubin,Urine Negative (Negative); Blood,Urine Negative (Negative); Color,Urine Yellow; Glucose,Urine (UA) Negative (Negative); Ketones,Urine Trace (Negative); Leukocyte Esterase,Urine Moderate (Negative); Mucus,Urine Rare /hpf; Nitrite,Urine Negative (Negative); Protein,Urine Trace (Negative); RBC,Urine 2 /hpf (0-5); Specific Gravity,Urine 1.021 (1.001-1.035); Squamous Epithelial Cell,Urine 3 /hpf (0-4); WBC,Urine 7 /hpf (0-5)
[2017-12-08 22:16] LABS: Basophils % (A) 0 %; Eosinophils # (A) 0.3 k/uL (0-0.7); Eosinophils % (A) 4 %; HCT 27.6 % (34.0-46.0); Hypochromasia Moderate; Lymphocytes # (A) 1.5 k/uL (1.0-4.8); Lymphocytes % (A) 18 %; MCH 27.4 pg (25.0-35.0); MCHC 32.5 g/dL (31.0-37.0); MCV 84.3 fL (80.0-100.0); Mean Platelet Volume 8.3; Monocytes # (A) 0.6 k/uL (0-1.0); Monocytes % (A) 7 %; Neutrophils # (A) 5.6 k/uL (1.3-7.7); Neutrophils % (A) 68 %; Platelet Count 254 k/uL (150-450); Poikilocytosis Slight; RBC 3.27 m/uL (3.80-5.40); RDW 13.5 % (11.5-15.5); WBC 8.3 k/uL (3.8-10.6)
[2017-12-08 22:22] LABS: ALT 22 U/L (9-52); AST 19 U/L (14-36); Blood Urea Nitrogen 9 mg/dL (7-17); LDH 398 U/L (313-618); Uric Acid 4.6 mg/dL (3.7-7.4)
[2017-12-09 22:14] LABS: Creatinine,Urine Random 177.9 mg/dL
--- NOTE | 2018-03-01 17:07 | P.MSEPDOC ---
Presenting Problems - Arrival Data Date of Arrival on Unit: 12/08/17 Time of Arrival on Unit: 20:40 Mode of Transport: Ambulatory - Complaint OB-Reason for Admission/Chief Complaint: Elevated Blood Pressure Medical History - Information : 3 Para: 1 Term: 1 : 0 Abortions: Spontaneous or Elective: 1 Number of Living Children: 1 - Gestational Age Gestational Age by BRIE (wks/days): 35 Weeks and 4 Days Review of Systems - Review of Systems Constitutional: No problems Breast: No problems ENT: No problems Cardiovascular: No problems Respiratory: No problems Gastrointestinal: No problems Genitourinary: No problems Musculoskeletal: No problems Neurological: No problems Skin: No problems Vital Signs - Temperature Temperature: 97.5 F Temperature Source: Temporal Artery Scan - Pulse Right Brachial Pulse Rate: 130 Pulse Assessment Method: Automatic Cuff - Respirations Respiratory Rate: 16 Oxygen Delivery Method: Room Air O2 Sat by Pulse Oximetry: 98 - Blood Pressure Right Arm Blood Pressure: 121/72 Blood Pressure Mean: 88 Blood Pressure Source: Automatic Cuff Medical Screen Scoring (Pre) - Cervical Exam Dilation: Exam Deferred Effacement: Exam Deferred Membranes: Intact - Uterine Contractions Frequency: N/A Duration: N/A Intensity: N/A - Maternal Vital Signs Maternal Temperature: N/A Maternal Blood Pressure: N/A Signs of Preeclampsia: N/A Maternal Respirations: N/A - Pain Assessment Pain Scale Used: Numeric (1 - 10) Pain Intensity: 0 - Maternal Trauma Maternal Trauma: N/A - Assessment Baseline FHR: 130 Heart Rate - NICHD Category: Category I (Normal) = 0 NST: Reactive Position: N/A Station: N/A - Total Score Total Score (Pre): 0 - Level of Risk Level of Risk: Low (0-5) Physician Notification (Pre) - Physician Notified Physician Notified Date: 12/08/17 Physician Notified Time: 20:52 Physician/Practitioner Notifed:: Dr. Reese Spoke With: Dr. Reese New Order Received: Yes - Notification Comment Comment: Dr. Reese given on pt in triage, pt c/o, vs WNL. Orders recieved to send UA and. to collect and send [facility] labs. I agree with the RN Medical Screening Exam: Yes Risk & Benefit of care provided described in d/c instruction: Yes Diagnosis: DECREASED MOVEMENTS, THIRD TRIMESTER, UNSP
== END | disposition home or self-care (01) ==
LOC: FBPOP 20:40
PROVIDERS: ATTEND Obstetrics & Gynecology
DX: O36.8130 Decreased fetal movements, third trimester, not applicable or unspecified (principal); Z3A.35 35 weeks gestation of pregnancy; R03.0 Elevated blood-pressure reading, without diagnosis of hypertension
CPT/HCPCS: 81001; 82565; 82570; 83615; 84156; 84450; 84460; 84520; 84550; 85025

== ENCOUNTER 2017-12-22 00:26 | Inpatient (IN) | payer MEDICAID ==
[2017-12-22] MEDS ORDERED: OXYTOCIN 10 UNIT/ML 1 ML VIAL IM PRN (01:10)
[2017-12-22] MEDS ORDERED: CARBOPROST TROMETHAMINE 250 MCG/ML 1 ML AMP IM PRN (01:10)
[2017-12-22] MEDS ORDERED: TERBUTALINE 1 MG/ML VIAL SQ PRN (01:10)
[2017-12-22] MEDS ORDERED: METHYLERGONOVINE 0.2 MG/ML 1 ML AMP IM PRN (01:10)
[2017-12-22] MEDS ORDERED: LIDOCAINE 1% (PF) 10 MG/ML (30 ML SDV) SQ PRN (01:10)
[2017-12-22] MEDS ORDERED: LACTATED RINGERS 1,000 ML IV SCH (01:15)
--- NOTE | 2017-12-22 01:55 | P.HPOB ---
History of Present Illness H&P Date: 12/22/17 Chief Complaint: Contractions This patient is a 22-year-old 3 para 1 female estimated date of confinement 01/08/2018 estimated gestational age 37-3/7 weeks who presents to labor and delivery with complaints of regular painful contractions. Patient was 3 cm on admission and is now 4 cm dilated and thought to be in early active labor. care is per Dr. Bryson appears to be complicated by late to seek care her first visit was approximately 19 weeks. Patient has also had quite a bit of lower extremity swelling but no evidence of hypertension. otherwise has been uncomplicated. Review of Systems Gastrointestinal: Reports heartburn Genitourinary: Reports Menstruation: Reports amenorrhea Past Medical History Past Medical History: No Reported History Additional Past Medical History / Comment(s): Obstetric history: Patient's had 1 term vaginal delivery 7 lbs. 5 oz. baby boy and 1 elective . History of Any Multi-Drug Resistant Organisms: None Reported Additional Past Surgical History / Comment(s): Pilonidal cyst removal Past Anesthesia/Blood Transfusion Reactions: No Reported Reaction Smoking Status: Never smoker Past Alcohol Use History: None Reported Past Drug Use History: None Reported - Past Family History Mother Family Medical History: No Reported History Medications and Allergies Home Medications Medication Instructions Recorded Confirmed Type Pnv No.95/Ferrous Fum/Folic AC 1 tab PO DAILY 09/11/17 12/22/17 History [ Multivitamin Tablet] Allergies Allergy/AdvReac Type Severity Reaction Status Date / Time No Known Allergies Allergy Verified 12/08/17 21:04 Exam Vital Signs Temp Pulse Resp BP Pulse Ox 12/22/17 00:31 98.5 F 89 16 134/76 100 Intake and Output 12/21/17 12/21/17 12/22/17 14:59 22:59 06:59 Other: Weight 73.936 kg - OBG Physical Exam Abdomen: bowel sounds normal, no diffuse tenderness, no bruit present, no guarding noted, no hepatomegaly, no splenomegaly, no mass Vulva: both: normal Vagina: normal moisture, no discharge Cervix: Cervix is 4 cm dilated 80% effaced -2 station. Cervix: no lesion, no discharge Uterus: enlarged (Fundal height in the office was 37 cm.) Results labs show she is B negative, rubella immune, RPR nonreactive, hepatitis B negative, HIV is nonreactive, Glucola was normal, patient did receive RhoGAM on October 15. Most recent ultrasound showed estimated weight at the 31st percentile with normal anatomy. Group B strep was negative. Assessment and Plan Assessment: This is a 22-year-old 3 para 1 female 37-1/2 weeks gestation with active labor. Plan is artificial rupture membranes and anticipate vaginal delivery. Epidural anesthesia if requested. (1) Normal labor Current Visit: No Status: Resolved Code(s): O80 - ENCOUNTER FOR FULL-TERM UNCOMPLICATED DELIVERY; Z37.9 - OUTCOME OF DELIVERY, UNSPECIFIED SNOMED Code(s ): 35919506 (2) Rh negative status during Current Visit: Yes Status: Acute Code(s): O09.899 - SUPERVISION OF OTHER HIGH RISK PREGNANCIES, UNSP TRIMESTER; Z67.91 - UNSPECIFIED BLOOD TYPE, RH NEGATIVE SNOMED Code(s): 097098454
[2017-12-22 02:01] LABS: Basophils % (A) 0 %; Eosinophils # (A) 0.3 k/uL (0-0.7); Eosinophils % (A) 4 %; HCT 31.9 % (34.0-46.0); HGB 10.2 gm/dL (11.4-16.0); Hypochromasia Slight; Lymphocytes # (A) 2.4 k/uL (1.0-4.8); Lymphocytes % (A) 27 %; MCV 81.2 fL (80.0-100.0); Mean Platelet Volume 9.2; Monocytes # (A) 0.4 k/uL (0-1.0); Monocytes % (A) 5 %; Neutrophils # (A) 5.5 k/uL (1.3-7.7); Neutrophils % (A) 62 %; Platelet Count 268 k/uL (150-450); Poikilocytosis Slight; RBC 3.93 m/uL (3.80-5.40); RDW 14.1 % (11.5-15.5); WBC 8.8 k/uL (3.8-10.6)
[2017-12-22] MEDS ORDERED: SODIUM CHLORIDE 0.9% 100 ML BAG ONE (02:06)
[2017-12-22] MEDS ORDERED: fentaNYL (PF) 50 MCG/ML 5 ML AMP ONE (02:06)
[2017-12-22] MEDS ORDERED: ROPIVACAINE 5MG/ML 20ML VIAL ONE (02:06)
[2017-12-22 02:48] VITALS: BMI 29.8
[2017-12-22] MEDS ORDERED: WITCH HAZEL 1 EACH MED..PAD TOPICAL PRN (05:48)
[2017-12-22] MEDS ORDERED: diphenhydrAMINE 25 MG CAP PO PRN (05:48)
[2017-12-22] MEDS ORDERED: ACETAMINOPHEN TAB 325 MG TAB PO PRN (05:48)
[2017-12-22] MEDS ORDERED: BENZOCAINE/MENTHOL SPRAY 1 GM/SPRAY AEROSOL TOPICAL PRN (05:48)
[2017-12-22] MEDS ORDERED: SIMETHICONE 80 MG CHEWABLE PO PRN (05:48)
[2017-12-22] MEDS ORDERED: Rhogam IMMUNE GLOBULIN 1,500 UNIT/1 ML IM ONE (05:48)
[2017-12-22] MEDS ORDERED: diphenhydrAMINE 50 MG/ML 1 ML VIAL IVP PRN (05:48)
[2017-12-22] MEDS ORDERED: LANOLIN CREAM 5 GM TUBE TOPICAL PRN (05:48)
[2017-12-22] MEDS ORDERED: ZOLPIDEM 5 MG TAB PO PRN (05:48)
[2017-12-22] MEDS ORDERED: BISACODYL 10 MG SUPP RECTAL PRN (05:48)
[2017-12-22] MEDS ORDERED: HYDROCORTISONE 2.5% RECTAL CREAM 30 GM TUBE RECTAL PRN (05:48)
--- NOTE | 2017-12-22 05:54 | P.PROBDLV ---
Vaginal Delivery Note - . Vaginal Delivery Note: Normal spontaneous vaginal delivery of a viable female Apgars 8 and 9 at 0529 hours. Please see dictated H&P for intimate details of this patient's admission. Brief summary this is a pleasant 22-year-old 3 para 1 female 37-3/7 weeks gestation admitted to labor and delivery in active labor. Patient has artificial rupture membranes for clear fluid at 4 cm dilated. She subsequently gets an epidural for pain control. Labor progresses normally and she gets to complete. She feels then urge to push and pushes the head to the perineum. The posterior perineum was supported and we have controlled delivery of 's head over the intact perineum. Infant's head is right occiput transverse. After delivery of the 's head the mouth and nares are bulb suctioned there is a loose nuchal cord. She then spontaneously delivers the anterior and posterior shoulder and rest this infant's body. This is a vigorous viable female Apgars are 8 and 9 delivery time was 0529 hours. After delivery of the infant the umbilical cord is allowed to stop pulsating the cord is doubly clamped cut. Placenta is then spontaneously delivered intact. Inspection of the perineum shows no lacerations and no repair is necessary. Assessment blood loss is 150 mL. There are no complications. All counts are correct 3. and mother stable delivery room.
[2017-12-22] MEDS: SENNOSIDES-DOCUSATE SODIUM 1 EACH TAB PO SCH ×2 (08:20→21:35)
[2017-12-22] MEDS ORDERED: IRON AG/C/B12/CA/SUC.ACID/STOM 1 EACH TAB PO SCH (09:00)
[2017-12-22] MEDS: IBUPROFEN 600 MG TAB PO PRN ×2 (13:33→19:22)
[2017-12-22 21:37] VITALS: RESP 16
[2017-12-23] MEDS: IBUPROFEN 600 MG TAB PO PRN ×2 (00:32→07:31)
[2017-12-23 01:01] VITALS: BP 108/66; PULSE 77; TEMP 97.7
--- NOTE | 2017-12-23 06:20 | P.PNOBGVD ---
Subjective - Subjective Patient reports: Reports appetite normal, Reports voiding normally, Reports pain well controlled, Reports ambulating normally : doing well Objective - Latest Vital Signs Latest vital signs: Vital Signs Temp Pulse Resp BP Pulse Ox 12/23/17 00:00 97.7 F 77 16 108/66 12/22/17 20:00 98.3 F 72 16 95/51 12/22/17 16:00 98.3 F 78 18 116/68 98 12/22/17 11:48 98.0 F 55 L 18 108/68 99 12/22/17 07:44 98.0 F 71 15 107/69 100 12/22/17 07:14 75 18 111/71 100 12/22/17 06:38 66 16 117/73 12/22/17 06:23 66 16 120/73 Intake and Output 12/22/17 12/22/17 12/23/17 14:59 22:59 06:59 Other: # Voids 1 1 2 - Exam Lungs: bilateral: normal Chest: Normal S1, Normal S2 Extremities: Present: normal Abdomen: Present: normal appearance, soft Uterus: Present: normal, firm Assessment and Plan Assessment: day #1. Patient is resting without complaints wishes to go home. Vital signs are stable and she is afebrile. Uterus is firm nontender she has normal lochia. My impression is a normal course. Plan is to continue routine care discharge home later today. (1) Normal labor Current Visit: No Status: Resolved Code(s): O80 - ENCOUNTER FOR FULL-TERM UNCOMPLICATED DELIVERY; Z37.9 - OUTCOME OF DELIVERY, UNSPECIFIED SNOMED Code(s ): 64075267 (2) Rh negative status during Current Visit: Yes Status: Acute Code(s): O09.899 - SUPERVISION OF OTHER HIGH RISK PREGNANCIES, UNSP TRIMESTER; Z67.91 - UNSPECIFIED BLOOD TYPE, RH NEGATIVE SNOMED Code(s): 573841226
--- NOTE | 2017-12-23 06:24 | P.DS ---
Providers Date of admission: 12/22/17 00:57 Expected date of discharge: 12/23/17 Attending physician: No Bryson Primary care physician: No Bryson - Discharge Diagnosis(es) (1) Normal labor Current Visit: No Status: Resolved (2) Rh negative status during Current Visit: Yes Status: Acute Hospital Course: Please see dictated H&P for intimate details of this patient's admission. Brief summary this pleasant 22-year-old 3 para 1 female 37-1/2 weeks gestation admitted to labor and delivery in active labor. Patient was on have a vaginal delivery viable female infant. Please see dictated delivery note. day #1 patient is doing well without complaints and wishes to go home. Patient's felt stable for discharge home follow with Dr. Bryson in 6 weeks. Procedures: Normal spontaneous vaginal delivery Patient Condition at Discharge: Good Plan - Discharge Summary New Discharge Prescriptions: New Ibuprofen [Motrin] 600 mg PO Q6HR PRN #40 tab PRN Reason: Mild Pain Or Fever >= 100.5 No Action Pnv No.95/Ferrous Fum/Folic AC [ Multivitamin Tablet] 1 tab PO DAILY Discharge Medication List Pnv No.95/Ferrous Fum/Folic AC [ Multivitamin Tablet] 1 tab PO DAILY [History] Ibuprofen [Motrin] 600 mg PO Q6HR PRN #40 tab 12/23/17 [Rx] Follow up Appointment(s)/Referral(s): No Bryson DO [Primary Care Provider] - 02/02/18 10:45 am Patient Instructions/Handouts: Vaginal Delivery (DC) Activity/Diet/Wound Care/Special Instructions: No intercourse or anything per vagina for 6 weeks. Please call if any fever, chills, excessive vaginal bleeding, and/or abdominal pain. Discharge Disposition: HOME SELF-CARE
== END 2017-12-23 07:45 | disposition home or self-care (01) | DRG 775 ==
LOC: FBPOP 00:26 → 4FBP 00:57
PROVIDERS: ADMIT Obstetrics & Gynecology; ATTEND Obstetrics & Gynecology
PROC: 10907ZC Drainage of Amniotic Fluid, Therapeutic from Products of Conception, Via Natural or Artificial Opening (ICD-10-PCS; principal; 2017-12-22)
PROC: 10E0XZZ Delivery of Products of Conception, External Approach (ICD-10-PCS; principal; 2017-12-22)
PROC: 3E0R3NZ Introduction of Analgesics, Hypnotics, Sedatives into Spinal Canal, Percutaneous Approach (ICD-10-PCS; principal; 2017-12-22)
PROC: 00HU33Z Insertion of Infusion Device into Spinal Canal, Percutaneous Approach (ICD-10-PCS; principal; 2017-12-22)
DX: O69.81X0 Labor and delivery complicated by cord around neck, without compression, not applicable or unspecified (principal); Z37.0 Single live birth; Z3A.37 37 weeks gestation of pregnancy; O26.893 Other specified pregnancy related conditions, third trimester; Z67.91 Unspecified blood type, Rh negative
CPT/HCPCS: 59025; 85025; 99213

== ENCOUNTER → 2018-02-03 | Outpatient (CLI) | payer MEDICAID ==
[2018-02-03 12:32] LABS: Anisocytosis Slight; Basophils # (A) 0.1 k/uL (0-0.2); Basophils % (A) 1 %; Eosinophils # (A) 1.2 k/uL (0-0.7); Eosinophils % (A) 17 %; HGB 12.7 gm/dL (11.4-16.0); Hypochromasia Moderate; Lymphocytes # (A) 2.6 k/uL (1.0-4.8); Lymphocytes % (A) 39 %; MCH 25.3 pg (25.0-35.0); MCHC 30.4 g/dL (31.0-37.0); MCV 83.2 fL (80.0-100.0); Mean Platelet Volume 8.3; Monocytes # (A) 0.3 k/uL (0-1.0); Monocytes % (A) 5 %; Neutrophils # (A) 2.4 k/uL (1.3-7.7); Neutrophils % (A) 35 %; Platelet Count 207 k/uL (150-450); RBC 5.04 m/uL (3.80-5.40); RDW 16.5 % (11.5-15.5); WBC 6.8 k/uL (3.8-10.6)
== END | disposition home or self-care (01) ==
LOC: LABPAT 11:46
PROVIDERS: ATTEND Obstetrics & Gynecology
DX: Z01.812 Encounter for preprocedural laboratory examination (principal)
CPT/HCPCS: 36415; 85025

== ENCOUNTER 2018-02-22 06:25 | Day surgery (SDC) | payer MEDICAID ==
[2018-02-03 11:07] VITALS: BMI 23.7
--- NOTE | 2018-02-22 06:21 | P.HPOB ---
History of Present Illness H&P Date: 02/22/18 Chief Complaint: Family Planning 22 year old presents for laparoscopic tubal ligation. Review of Systems All systems: negative Constitutional: Denies chills, Denies fever Eyes: denies blurred vision, denies pain Ears, nose, mouth and throat: Denies headache, Denies sore throat Cardiovascular: Denies chest pain, Denies shortness of breath Respiratory: Denies cough Gastrointestinal: Denies abdominal pain, Denies diarrhea, Denies nausea, Denies vomiting Genitourinary: Denies dysuria, Denies hematuria Musculoskeletal: Denies myalgias Integumentary: Denies pruritus, Denies rash Neurological: Denies numbness, Denies weakness Psychiatric: Denies anxiety, Denies depression Endocrine: Denies fatigue, Denies weight change Past Medical History Past Medical History: GERD/Reflux Additional Past Medical History / Comment(s): POST -BABY BORN 12/22/17, STATES ANEMIC DURING . History of Any Multi-Drug Resistant Organisms: None Reported Additional Past Surgical History / Comment(s): Pilonidal cyst removal Past Anesthesia/Blood Transfusion Reactions: No Reported Reaction Past Psychological History: No Psychological Hx Reported Smoking Status: Never smoker Past Alcohol Use History: Occasional Past Drug Use History: None Reported - Past Family History Mother Family Medical History: Cancer Additional Family Medical History / Comment(s): BREAST CANCER, PTS GRANDMOTHER BREAST CANCER ALSO. Medications and Allergies Home Medications Medication Instructions Recorded Confirmed Type No Known Home Medications 02/03/18 02/03/18 History Allergies Allergy/AdvReac Type Severity Reaction Status Date / Time No Known Allergies Allergy Verified 02/03/18 10:52 Exam Osteopathic Statement: *. No significant issues noted on an osteopathic structural exam other than those noted in the History and Physical/Consult. Heart: RRR Lung: CTAB Abdomen: soft, nontende Extremeties: neg henrik's Assessment and Plan (1) Family planning Status: Acute Code(s): Z30.09 - ENCOUNTER FOR OTH GENERAL CNSL AND ADVICE ON CONTRACEPTION SNOMED Code(s): 926112504 Plan: 1. lapaoscopic tubal ligation
[~2018-02-22 06:25] MED LIST: DEXAMETHASONE SOD PHOSPHATE 10 MG/ML 1 ML VIAL IV ONE; HYDROmorphone 0.5 MG/0.5 ML SYRINGE IVP PRN; LACTATED RINGERS 1,000 ML IV SCH; MIDAZOLAM 2 MG/2 ML VIAL IV PRN; ONDANSETRON 4 MG/2 ML VIAL IVP ONE; Pre Op ABX Message 1 EACH MISC MISCELLANE ONE
[2018-02-22] MEDS ORDERED: LIDOCAINE 1% 20 ML VIAL (10MG/ML) FOR IV START INTRADERMA ONE (06:59)
[2018-02-22] MEDS ORDERED: BUPIVACAIN-EPI 0.25%-1:200,000 30 ML VIAL SQ ONE ×3 (07:44→08:36)
[2018-02-22] MEDS ORDERED: SUCCINYLCHOLINE CHLORIDE 100 MG/5 ML SYR IV ONE (07:56)
[2018-02-22] MEDS ORDERED: fentaNYL (PF) 50 MCG/ML 2 ML AMP ONE (07:56)
[2018-02-22] MEDS ORDERED: KETOROLAC 30 MG/ML 1 ML VIAL ONE (07:56)
[2018-02-22] MEDS ORDERED: PROPOFOL 10 MG/ML 20 ML VIAL IV ONE (07:56)
[2018-02-22] MEDS ORDERED: LIDOCAINE 1% INJ 10MG/ML (20 ML MDV) ONE (07:56)
[2018-02-22] MEDS ORDERED: MIDAZOLAM 2 MG/2 ML VIAL ONE (07:56)
--- NOTE | 2018-02-22 08:36 | P.OP ---
Date of Procedure: 02/22/18 Preoperative Diagnosis: 1. Family Planning Postoperative Diagnosis: 1. Family Planning Procedure(s) Performed: Laparoscopic tubal ligation Anesthesia: JOYCELYN Surgeon: No Bryson Estimated Blood Loss (ml): 3 IV fluids (ml): 450 Urine output (ml): 60 Pathology: none sent Condition: stable Disposition: PACU Operative Findings: Normal uterus, tubes, ovaries Description of Procedure: Patient was taken to the operating room where general anesthesia was obtained without difficulty. She was prepped and draped in normal sterile fashion in the dorsal lithotomy position, legs placed in the Rasta stirrups. Bladder drained of all urine. [place] speculum placed in the vagina and the anterior lip the cervix was grasped with single-tooth tenaculum. The uterus is sounded to 9 cm and the kroner manipulator was placed. Attention was then turned to the abdomen and gloves were changed. A 10 mm infraumbilical incision was made the scalpel and 10 mm optical trocar was placed under direct visualization. A 5 mm suprapubic Incision was made and a 5 mm optical trocar was placed under direct visualization. Survey of the pelvis revealed normal uterus tubes and ovaries. The left fallopian tube was grasped with a Kleppinger and fulgurated 2 -3 cm on this side in the ampullar portion. The right fallopian tube was grasped with a Kleppinger and fulgurated 2-3 cm in the ampullar portion. All instruments were then removed from the abdomen and vagina. The 10 mm infraumbilical incision was closed with 0 Vicryl and the fascial layer and then 4-0 Vicryl in a subcuticular fashion. The 5 mm incision was closed with 4-0 Vicryl in a subcuticular fashion. Patient tolerated procedure well, sponge and instrument counts correct 2 and she was taken to recovery room in stable condition.
[2018-02-22 08:58] VITALS: TEMP 96.8
[2018-02-22 10:26] VITALS: BP 114/75; PULSE 73; RESP 18
== END 2018-02-22 10:50 | disposition home or self-care (01) ==
LOC: OR 06:25
PROVIDERS: ATTEND Obstetrics & Gynecology
DX: Z30.2 Encounter for sterilization (principal); K21.9 Gastro-esophageal reflux disease without esophagitis
CPT/HCPCS: 81025; 58670; J2250; J1100; J2405; J2001; J3010; J1885; J0330; J2704

== ENCOUNTER 2018-05-07 15:29 | Emergency (ER) | payer MEDICAID, OTHER ==
[2018-05-07 15:32] VITALS: BP 116/74; PULSE 86; RESP 18; TEMP 98.5
--- NOTE | 2018-05-07 15:52 | ED ---
General Adult HPI - General Chief complaint: Needlestick/Exposure Stated complaint: [facility]-needlestick Time Seen by Provider: 05/07/18 15:34 Source: patient, RN notes reviewed, old records reviewed Mode of arrival: ambulatory Limitations: no limitations - History of Present Illness Initial comments: 22-year-old female presents emergency department today with complaint of needlestick exposure. She reports that she was working at [employer]. She was In a needle and eczematous occur right middle finger. She squeezed the blood shortly afterward and wash the hand with soap and water. She was able to draw the sources blood. Patient was sent here for testing. - Related Data Previous Rx's Medication Instructions Recorded Acetaminophen-Codeine 300-30mg 2 tab PO Q6H PRN #15 tablet 02/22/18 [Tylenol #3] Ibuprofen [Motrin] 600 mg PO Q6HR PRN #30 tab 02/22/18 Allergies Allergy/AdvReac Type Severity Reaction Status Date / Time No Known Allergies Allergy Verified 05/07/18 15:32 Review of Systems ROS Statement: Those systems with pertinent positive or pertinent negative responses have been documented in the HPI. ROS Other: All systems not noted in ROS Statement are negative. Past Medical History Past Medical History: GERD/Reflux Additional Past Medical History / Comment(s): POST -BABY BORN 12/22/17, STATES ANEMIC DURING . History of Any Multi-Drug Resistant Organisms: None Reported Past Surgical History: Tubal Ligation Additional Past Surgical History / Comment(s): Pilonidal cyst removal Past Anesthesia/Blood Transfusion Reactions: No Reported Reaction Past Psychological History: No Psychological Hx Reported Smoking Status: Never smoker Past Alcohol Use History: Occasional Past Drug Use History: None Reported - Past Family History Mother Family Medical History: Cancer Additional Family Medical History / Comment(s): BREAST CANCER, PTS GRANDMOTHER BREAST CANCER ALSO. General Exam - General Exam Comments Initial Comments: 22-year-old female. Alert and oriented. No acute distress. General: Well appearing, well nourished, in no distress. Oriented x 3, normal mood and affect . Ambulating without difficulty. Skin: Good turgor, no rash, unusual bruising or prominent lesions Hair: Normal texture and distribution. HEENT: Head: Normocephalic, atraumatic, no visible or palpable masses, depressions, or scaring. Eyes: Visual acuity intact, conjunctiva clear, sclera non-icteric, EOM intact, PERRL. Ears: EACs clear, TMs translucent & cone of light visualized. hearing intact. Nose: No external lesions, mucosa non-inflamed, septum and turbinates normal Mouth: Mucous membranes moist, no mucosal lesions. Teeth/Gums: No obvious caries or periodontal disease. No gingival inflammation or significant resorption. Pharynx: Mucosa non-inflamed, no tonsillar hypertrophy or exudate Neck: Supple, without lesions, bruits, or adenopathy, thyroid non-enlarged and non-tender Heart: No cardiomegaly or thrills; regular rate and rhythm, no murmur or gallop Lungs: Clear to auscultation and percussion Abdomen: Bowel sounds normal, no tenderness, organomegaly, masses, or hernia Back: Spine normal without deformity or tenderness, no CVA tenderness Extremities: No amputations or deformities, cyanosis, edema or varicosities, peripheral pulses intact Musculoskeletal: Normal gait and station. No misalignment, asymmetry, crepitation, defects, tenderness, masses, effusions, decreased range of motion, instability, atrophy or abnormal strength or tone in the head, neck, spine, ribs , pelvis or extremities. Neurologic: CN 2-12 normal. Sensation to pain, touch, and proprioception normal. DTRs normal in upper and lower extremities. No pathologic reflexes. Psychiatric: Oriented X3, intact recent and remote memory, judgment and insight , normal mood and affect. Limitations: no limitations Course Vital Signs 05/07/18 15:30 Temperature 98.5 F Pulse Rate 86 Respiratory 18 Rate Blood Pressure 116/74 O2 Sat by Pulse 100 Oximetry Medical Decision Making - Medical Decision Making 22-year-old female presenting to All needlestick. She was in the right middle finger. She does have the sources blood. Her blood testing was completed as well. Patient will be informed if there is any positive results on the sources blood. I did discuss post exposure prophylaxis. She states she would like to wait to start those medications until shesources blood. We'll call her for results. She has no sign of needle stick at this time. Patient will follow-up with digestive primary care physician. All questions answered. Disposition Clinical Impression: Needle stick injury Disposition: HOME SELF-CARE Condition: Good Instructions: Needle Stick Injuries (ED) Additional Instructions: I will call you on results on the sources blood. Follow-up with primary care provider and [facility]. Is patient prescribed a controlled substance at d/c from ED?: No Referrals: Femi German MD [Primary Care Provider] - 1-2 days Time of Disposition: 15:51
== END 2018-05-07 16:23 | disposition home or self-care (01) ==
LOC: EC 15:29
DX: S69.91XA Unspecified injury of right wrist, hand and finger(s), initial encounter (principal); W46.0XXA Contact with hypodermic needle, initial encounter; Y93.89 Activity, other specified; Y92.239 Unspecified place in hospital as the place of occurrence of the external cause; Y99.0 Civilian activity done for income or pay
CPT/HCPCS: 99283

== ENCOUNTER 2019-07-06 09:08 | Day surgery (SDC) | payer MEDICAID ==
[2019-07-05 11:06] VITALS: BMI 23.8
[~2019-07-06 09:08] MED LIST changes: -DEXAMETHASONE SOD PHOSPHATE 10 MG/ML 1 ML VIAL IV ONE; -HYDROmorphone 0.5 MG/0.5 ML SYRINGE IVP PRN; +LIDOCAINE 1% 20 ML VIAL (10MG/ML) FOR IV START INTRADERMA PRN; -MIDAZOLAM 2 MG/2 ML VIAL IV PRN; -ONDANSETRON 4 MG/2 ML VIAL IVP ONE; -Pre Op ABX Message 1 EACH MISC MISCELLANE ONE
[2019-07-06 09:48] VITALS: RESP 16; TEMP 98.5
[2019-07-06] MEDS ORDERED: PROPOFOL 10 MG/ML 20 ML VIAL IV ONE (12:16)
[2019-07-06] MEDS ORDERED: MIDAZOLAM 2 MG/2 ML VIAL ONE (12:16)
[2019-07-06] MEDS ORDERED: LIDOCAINE 1% INJ 10MG/ML (20 ML MDV) ONE (12:16)
[2019-07-06] MEDS ORDERED: fentaNYL (PF) 50 MCG/ML 2 ML AMP ONE (12:16)
--- NOTE | 2019-07-06 12:22 | P.GSHP ---
History of Present Illness H&P Date: 07/06/19 Chief Complaint: Epigastric pain, reflux Patient with complaints of mid epigastric/substernal pain. Happening intermittently. Thinks it may be in part related to stress. She has tried a variety of antiacids without success. Mild reflux as well. Past Medical History Past Medical History: GERD/Reflux Additional Past Medical History / Comment(s): worsening GERD History of Any Multi-Drug Resistant Organisms: None Reported Past Surgical History: Tubal Ligation Additional Past Surgical History / Comment(s): Pilonidal cyst removal Past Anesthesia/Blood Transfusion Reactions: Motion Sickness, Postoperative Nausea & Vomiting (PONV) Smoking Status: Never smoker - Past Family History Mother Family Medical History: Cancer Additional Family Medical History / Comment(s): BREAST CANCER, PTS GRANDMOTHER B REAST CANCER ALSO. Medications and Allergies Home Medications Medication Instructions Recorded Confirmed Type Pantoprazole Sodium [Protonix] 40 mg PO DAILY 07/05/19 07/06/19 History Allergies Allergy/AdvReac Type Severity Reaction Status Date / Time No Known Allergies Allergy Verified 07/06/19 09:42 Surgical - Exam Vital Signs Temp Pulse Resp BP Pulse Ox 98.5 F 94 16 111/58 99 07/06/19 09:40 07/06/19 09:40 07/06/19 09:40 07/06/19 09:40 07/06/19 09:40 Physical exam: General: Well-developed, well-nourished HEENT: Normocephalic, sclerae nonicteric Abdomen: Nontender, nondistended Extremities: No edema Neuro: Alert and oriented Assessment and Plan (1) Epigastric pain Narrative/Plan: Will proceed with upper endoscopy at this time Current Visit: Yes Status: Acute Code(s): R10.13 - EPIGASTRIC PAIN SNOMED Code(s): 17669414
--- NOTE | 2019-07-06 12:28 | P.PCN ---
Date of Procedure: 07/06/19 Procedure(s) Performed: Preoperative Dx: Epigastric pain, GERD Postoperative Dx: Minimal gastritis Procedure: EGD with Bx Anesthesia: Sedation Endoscopist: Dr. Gutierrez Specimens: Antrum Endoscopic Procedure: The patient was on the endoscopy table in the left decubitus position. The Olympus gastroscope was inserted into the oropharynx and passed under direct visualization to the region of the third portion of the duodenum. From that point the scope was slowly withdrawn inspecting all surfaces carefully. There were no neoplastic inflammatory or polypoid lesions throughout the duodenum. The pylorus was widely patent. The stomach was carefully inspected. There was minimal gastritis present. A biopsy of the antrum took place to rule out H. pylori. Retroflexion revealed a normal hiatus. The esophagus was then carefully examined. There were no neoplastic inflammatory or polypoid lesions throughout the visualized esophagus. The patient was then taken to the recovery room in stable condition per anesthesia guidelines. Recommendations: Continue as needed antiacids. Atypical symptoms for GERD. Symptoms could be related to esophageal spasm although duration is atypical. If symptoms continue to be precipitated by anxiety consider anxiolytics.
[2019-07-06 13:20] VITALS: BP 109/73; PULSE 69
== END 2019-07-06 13:27 | disposition home or self-care (01) ==
LOC: ORWHC2ENDO 09:08
PROVIDERS: ATTEND Surgery
DX: K21.9 Gastro-esophageal reflux disease without esophagitis (principal); K29.50 Unspecified chronic gastritis without bleeding; Z98.51 Tubal ligation status; Z98.890 Other specified postprocedural states; Z85.3 Personal history of malignant neoplasm of breast; Z79.899 Other long term (current) drug therapy
CPT/HCPCS: 81025; 88305; 43239; J2250; J2001; J3010; J2704

== ENCOUNTER 2019-09-19 08:13 | Emergency (ER) | payer MEDICAID ==
[2019-09-19 08:21] VITALS: RESP 18
[2019-09-19 09:04] LABS: Appearance,Urine Cloudy (Clear); Bacteria,Urine Many /hpf; Bilirubin,Urine Negative (Negative); Blood,Urine Negative (Negative); Color,Urine Yellow; Glucose,Urine (UA) Negative (Negative); Ketones,Urine Negative (Negative); Leukocyte Esterase,Urine Large (Negative); Mucus,Urine Few /hpf; Nitrite,Urine Positive (Negative); PH, Urine 6.5 (5.0-8.0); Protein,Urine 1+ (Negative); RBC,Urine 7 /hpf (0-5); Specific Gravity,Urine 1.029 (1.001-1.035); Squamous Epithelial Cell,Urine 17 /hpf (0-4); WBC,Urine 27 /hpf (0-5)
--- NOTE | 2019-09-19 09:05 | ED ---
General Adult HPI - General Chief complaint: Fever Stated complaint: fever/body aches Time Seen by Provider: 09/19/19 08:23 Source: patient, RN notes reviewed, old records reviewed Mode of arrival: ambulatory Limitations: no limitations - History of Present Illness Initial comments: 24-year-old female patient with past history significant for GERD, tubal l igation presents to ED for evaluation of approximately 3 days and mild coughing, fevers, generalized myalgias, mild shortness of breath. Patient reports that she has been using Tylenol for fever which has been decent job of controlling it. She reports that she did take 800 mg approximately 2 hours prior to presentation to the ED. Denie any positive covid related contacts or high-risk job at work. Denies any other complaints. Systemic: Pt denies fatigue, fever/chills, rash. Pt denies weakness, night sweats, weight loss. Neuro: Pt denies headache, visual disturbances, syncope or pre-syncope. HEENT: Pt denies ocular discharge or irritation, otalgia, rhinorrhea, pharyngitis or notable lymphadenopathy. Cardiopulmonary: Pt denies chest pain, heart palpitations, dyspnea on exertion. Abdominal/GI: Pt denies abdominal pain, n/v/d. : Pt denies dysuria, burning w/ urination, frequency/urgency. Denies new onset urinary or bowel incontinence. MSK: Pt denies myalgia, loss of strength or function in extremities. Neuro: Pt denies new onset weakness, paresthesias. - Related Data Home Medications Medication Instructions Recorded Confirmed Pantoprazole Sodium [Protonix] 40 mg PO DAILY 07/05/19 07/06/19 Previous Rx's Medication Instructions Recorded Cephalexin [Keflex] 500 mg PO Q12HR 7 Days #14 cap 09/19/19 Allergies Allergy/AdvReac Type Severity Reaction Status Date / Time No Known Allergies Allergy Verified 09/19/19 08:21 Review of Systems ROS Statement: Those systems with pertinent positive or pertinent negative responses have been documented in the HPI. ROS Other: All systems not noted in ROS Statement are negative. Past Medical History Past Medical History: GERD/Reflux Additional Past Medical History / Comment(s): worsening GERD History of Any Multi-Drug Resistant Organisms: None Reported Past Surgical History: Tubal Ligation Additional Past Surgical History / Comment(s): Pilonidal cyst removal Past Anesthesia/Blood Transfusion Reactions: Motion Sickness, Postoperative Nausea & Vomiting (PONV) Past Psychological History: No Psychological Hx Reported Smoking Status: Never smoker Past Alcohol Use History: Occasional Past Drug Use History: None Reported - Past Family History Mother Family Medical History: Cancer Additional Family Medical History / Comment(s): BREAST CANCER, PTS GRANDMOTHER BREAST CANCER ALSO. General Exam - General Exam Comments Initial Comments: Constitutional: NAD, AOX3, Pt has pleasant affect. HEENT: NC/AT, trachea midline. External ears appear normal, without discharge. Mucous membranes moist. Eyes PERRLA, EOM intact. There is no scleral icterus. No pallor noted. Cardiopulmonary: RRR, no murmurs, rubs or gallops, no JVD noted. Lungs CTAB in anterior and posterior tucker. No peripheral edema. Abdominal exam: Abdomen soft and non-distended. No focal area of tenderness. Reports some mild generalized discomfort. No guarding or rigidity. No hepatosplenomegaly. No ecchymosis Neuro: CN II-XII grossly intact. No nuchal rigidity. No raccon eyes, no cesar sign. MSK: No posterior calf tenderness bilaterally, homans sign negative bilaterally. Posterior tibialis and radial pulse +2 bilaterally. Sensation intact in upper and lower extremities. Full active ROM in upper and lower extremities. Limitations: no limitations Course Vital Signs 09/19/19 09/19/19 08:19 10:03 Temperature 100.3 F H 99 F Pulse Rate 113 H 82 Respiratory 18 18 Rate Blood Pressure 110/73 110/68 O2 Sat by Pulse 98 98 Oximetry Medical Decision Making - Medical Decision Making 24-year-old female patient with past history significant for GERD, tubal ligation presents to ED for evaluation of approximately 3 days and mild coughing, fevers, generalized myalgias, mild shortness of breath. Patient reports that she has been using Tylenol for fever which has been decent job of controlling it. She reports that she did take 800 mg tylenol approximately 2 hours prior to presentation to the ED. Denie any positive covid related contacts or high-risk job at work. Denies any other complaints. Patient initial vital signs displayed temperature of 100.3. Pulse of 113. Physical exam displayed: Lungs clear to auscultation bilaterally. Patient does report that she does have some generalized discomfort of her abdomen however denies any focal area of pain. Laboratory investigations are obtained, and this did display nitrate positive urine 7 white blood cells, 17 squamous visual cells. Patient denies any dysuria, she will be treated with antibiotics. HCG is negative. Denies concern for STI. Coronavirus is negative, influenza is negative, chest x-ray displayed no acute process. Patient reports that she has been doing a good job of hydrating herself at home. Upon repeat evaluation patient reports that she is feeling better she's denying shortness of breath. Patient is afebrile at time of discharge. Patient discharged with antibiotics, close patient follow-up with primary care provider and will return to ER if condition worsens. Return precautions discussed. Explained to patient that is still possible that she could have coronavirus and she should still exercise precautions. Case discussed in depth with Dr. Tolentino. - Lab Data Lab Results 09/19/19 09/19/19 09/19/19 Range/Units 08:40 08:40 08:40 Urine Color Yellow Urine Appearance Cloudy H (Clear) Urine pH 6.5 (5.0-8.0) Ur Specific Dagmar 1.029 (1.001-1.035) Urine Protein 1+ H (Negative) Urine Glucose (UA) Negative (Negative) Urine Ketones Negative (Negative) Urine Blood Negative (Negative) Urine Nitrite Positive H (Negative) Urine Bilirubin Negative (Negative) Urine Urobilinogen 2.0 (<2.0) mg/dL Ur Leukocyte Esterase Large H (Negative) Urine RBC 7 H (0-5) /hpf Urine WBC 27 H (0-5) /hpf Ur Squamous Epith Cells 17 H (0-4) /hpf Urine Bacteria Many H (None) /hpf Urine Mucus Few H (None) /hpf Urine HCG, Qual Not Detected (Not Detectd) Coronavirus (PCR) Not Detected (Not Detectd) Influenza Type A RNA Not Detected (Not Detectd) Influenza Type B (PCR) Not Detected (Not Detectd) Disposition Clinical Impression: UTI (urinary tract infection), Fever, Cough Disposition: HOME SELF-CARE Condition: Stable Instructions (If sedation given, give patient instructions): Urinary Tract Infection in Women (ED), Fever in Adults (ED), Acute Cough (ED) Additional Instructions: Take antibiotics as directed. Follow up with primary care provider today after discharge. Return to ER if condition worsens in anyway. Continue to drink lots of fluids. Prescriptions: Cephalexin [Keflex] 500 mg PO Q12HR 7 Days #14 cap Is patient prescribed a controlled substance at d/c from ED?: No Referrals: Femi German MD [Primary Care Provider] - 1-2 days
[2019-09-19] MEDS ORDERED: CEPHALEXIN 500 MG CAP PO STA (09:09)
--- NOTE | 2019-09-19 09:10 | XR ---
EXAMINATION TYPE: XR chest 1V DATE OF EXAM: 09/19/2019 COMPARISON: NONE HISTORY: Cough TECHNIQUE: Single frontal view of the chest is obtained. FINDINGS: There is no focal air space opacity, pleural effusion, or pneumothorax seen. The cardiac silhouette size is within normal limits. The osseous structures are intact. IMPRESSION: No acute cardiopulmonary process.
[2019-09-19 10:06] VITALS: BP 110/68; PULSE 82; TEMP 99
== END 2019-09-19 10:03 | disposition home or self-care (01) ==
LOC: EC 08:13
DX: N39.0 Urinary tract infection, site not specified (principal); Z20.828 Contact with and (suspected) exposure to other viral communicable diseases; K21.9 Gastro-esophageal reflux disease without esophagitis; Z79.899 Other long term (current) drug therapy
CPT/HCPCS: 71045; 81001; 81025; 87086; 87502; 87635; 99284

== ENCOUNTER 2022-02-23 09:28 | Emergency (ER) | payer BC, MEDICAID ==
[2022-02-23 09:38] VITALS: RESP 20; TEMP 98.1
[2022-02-23] MEDS ORDERED: FAMOTIDINE 20 MG/2 ML VIAL IV STA (10:15)
[2022-02-23] MEDS ORDERED: SODIUM CHLORIDE 0.9% 500 ML 500 ML IV STA (10:15)
[2022-02-23] MEDS ORDERED: diphenhydrAMINE 50 MG/ML 1 ML VIAL IVP STA (10:15)
[2022-02-23] MEDS ORDERED: methylPREDNISolone SOD SUCCI 125 MG/2 ML VIAL IV STA (10:15)
--- NOTE | 2022-02-23 11:03 | ED ---
Skin/Abscess/FB HPI - General Chief complaint: Allergic Reaction Stated complaint: Allergic Reaction/Rash Time Seen by Provider: 02/23/22 09:56 Source: patient, RN notes reviewed Mode of arrival: ambulatory Limitations: no limitations - History of Present Illness Initial comments: This is a 26-year-old female who presents to the emergency department for a rash. States that when she woke up, she had red bumps on her hands, her face, her stomach, and her back. States that these are only mildly itchy but do feel like they are burning. Denies coming in contact with any new lotions, soaps, or detergents. She did not start any antibiotics recently. Nobody else in her house has the same symptoms. She also shared a bed with her , as she normally does, and he is not experiencing any of the same symptoms. Of note, the patient is currently camping and staying in a cabin. Denies any fevers, chills, or difficulty breathing. Denies any fevers, chills, sore throat, cough, dyspnea, chest pain, palpitations, abdominal pain, nausea, vomiting, diarrhea, back pain, or headaches. MD complaint: rash Location: generalized - Related Data Home Medications Medication Instructions Recorded Confirmed Pantoprazole Sodium [Protonix] 40 mg PO DAILY 07/05/19 07/06/19 Previous Rx's Medication Instructions Recorded Cephalexin [Keflex] 500 mg PO Q12HR 7 Days #14 cap 09/19/19 predniSONE 10 mg PO DAILY 15 Days #45 tab 02/23/22 Allergies Allergy/AdvReac Type Severity Reaction Status Date / Time No Known Allergies Allergy Verified 02/23/22 09:38 Review of Systems ROS Statement: Those systems with pertinent positive or pertinent negative responses have been documented in the HPI. ROS Other: All systems not noted in ROS Statement are negative. Past Medical History Past Medical History: GERD/Reflux Additional Past Medical History / Comment(s): worsening GERD History of Any Multi-Drug Resistant Organisms: None Reported Past Surgical History: Tubal Ligation Additional Past Surgical History / Comment(s): Pilonidal cyst removal Past Anesthesia/Blood Transfusion Reactions: Motion Sickness, Postoperative Nausea & Vomiting (PONV) Past Psychological History: No Psychological Hx Reported Smoking Status: Never smoker Past Alcohol Use History: Occasional Past Drug Use History: None Reported - Past Family History Mother Family Medical History: Cancer Additional Family Medical History / Comment(s): BREAST CANCER, PTS GRANDMOTHER BREAST CANCER ALSO. General Exam Limitations: no limitations General appearance: alert, in no apparent distress Head exam: Present: atraumatic, normocephalic, normal inspection ENT exam: Present: normal exam, mucous membranes moist Neck exam: Present: normal inspection. Absent: tenderness, meningismus, lymphadenopathy Respiratory exam: Present: normal lung sounds bilaterally. Absent: respiratory distress, wheezes, rales, rhonchi, stridor Cardiovascular Exam: Present: regular rate, normal rhythm, normal heart sounds. Absent: systolic murmur, diastolic murmur, rubs, gallop, clicks Neurological exam: Present: alert, oriented X3, CN II-XII intact Psychiatric exam: Present: normal affect, normal mood Skin exam: Present: other (Papular rash on the right side of the face, the dorsal aspect of both hands, the forearms, and the trunk. Dermatographism is present. Negative Nikolsky sign.) Course Vital Signs 02/23/22 02/23/22 09:36 12:01 Temperature 98.1 F Pulse Rate 100 88 Respiratory 20 20 Rate Blood Pressure 120/78 116/78 O2 Sat by Pulse 100 100 Oximetry Medical Decision Making - Medical Decision Making This is a 26-year-old female who presents to the emergency department for a rash. She given IV Solu-Medrol, Benadryl, and Pepcid. It did appear that she had mild improvement to the rash on her forehead following medication administration, however it is not expected that she would have any significant relief immediately. It is possible that these are related to bedbugs, as the patient is staying at a [facility] that has had previous complaints for bedbugs, and not everyone who has bedbugs has a reaction immediately, indicating her may break out in a rash later on. Prednisone taper was prescribed. She is advised to continue taking Benadryl or an alternative antihistamine, Pepcid, and using [id number] hydrocortisone cream if needed. Also instructed her to wash all of her sheets and clothing in hot water and to gently wash the rash with soap and water. Dermatology follow-up was provided in the event symptoms do not improve. Return precautions reviewed in depth, the patient is instructed to return to the emergency department with any new, worsening, or concerning symptoms. Patient verbalized understanding. This case was discussed in detail with the attending ED physician. Presentation, findings, and treatment plan discussed in detail as well. Disposition Clinical Impression: Rash of unknown cause Disposition: HOME SELF-CARE Instructions (If sedation given, give patient instructions): Acute Rash (ED), Dermatitis (ED) Additional Instructions: Return to the emergency department with any new, worsening, or concerning symptoms. Take the prednisone based on the following instructions: Take 5 tablets (50 mg), for 3 days, followed by 4 tablets (40 mg) for 3 days, 30 mg for 3 days, 20 mg for 3 days, and then 10 mg for 3 days. This will also be listed on the prescription. Make sure you are taking Pepcid and Benadryl (or an alternative antiinflammatory) daily as well, both of which can be purchased [id number]. I have listed dermatology for a follow-up, if your symptoms do not improve, please call them tomorrow morning. You can also try applying [id number] hydrocortisone cream for additional relief. Make sure that you wash the rash gently with soap and water and wash all of your sheets and clothing with hot water as well. Follow up with your primary care provider in 1-2 days. Prescriptions: predniSONE 10 mg PO DAILY 15 Days #45 tab Is patient prescribed a controlled substance at d/c from ED?: No Referrals: Femi German MD [Primary Care Provider] - 1-2 days Maldonado Millan MD [STAFF PHYSICIAN] - 1-2 days
[2022-02-23 12:02] VITALS: BP 116/78; PULSE 88
== END 2022-02-23 12:02 | disposition home or self-care (01) ==
LOC: EC 09:28
DX: R21 Rash and other nonspecific skin eruption (principal); L29.9 Pruritus, unspecified; K21.9 Gastro-esophageal reflux disease without esophagitis; Z79.899 Other long term (current) drug therapy
CPT/HCPCS: 99283; 96374; 96375; 96361; J1200; J2930

== ENCOUNTER 2024-02-13 12:27 | Emergency (ER) | payer BC ==
[2024-02-13 12:35] VITALS: TEMP 98
[2024-02-13 13:02] LABS: Basophils % (A) 1 %; Eosinophils # (A) 0.8 k/uL (0-0.7); Eosinophils % (A) 10 %; HCT 42.3 % (34.0-46.0); HGB 13.7 gm/dL (11.4-16.0); Lymphocytes # (A) 2.2 k/uL (1.0-4.8); Lymphocytes % (A) 27 %; MCHC 32.3 g/dL (31.0-37.0); MCV 92.8 fL (80.0-100.0); Mean Platelet Volume 8.6; Monocytes # (A) 0.4 k/uL (0-1.0); Monocytes % (A) 5 %; Neutrophils # (A) 4.6 k/uL (1.3-7.7); Neutrophils % (A) 57 %; Platelet Count 249 k/uL (150-450); RBC 4.56 m/uL (3.80-5.40); RDW 12.1 % (11.5-15.5); WBC 8.1 k/uL (3.8-10.6)
--- NOTE | 2024-02-13 13:11 | ED ---
Chest Pain HPI - General Chief Complaint: Chest Pain Stated Complaint: chest pain Time Seen by Provider: 02/13/24 12:35 Source: patient Mode of arrival: ambulatory Limitations: no limitations - History of Present Illness Initial Comments: 28-year-old female who is previously healthy who presents emergency department reporting chest pain. States that her symptoms have been going on for a few days. She recently had an upper respiratory infection. States that afterwards she has developed a pleuritic pain. It is located over the left side of her shanda st without radiation. States that the pain is worse with inspiration. She has not taken anything for the pain at home. No history of heart disease. Denies any family history of premature cardiac . She has had a nonproductive cough. No nausea or vomiting. Denies currently having a fever but states that she did. No concern for . No history of DVT or PE. No recent travel or long car rides. No other alleviating, precipitating or modifying factors - Related Data Home Medications Medication Instructions Recorded Confirmed Pantoprazole Sodium [Protonix] 40 mg PO DAILY 07/05/19 07/06/19 Previous Rx's Medication Instructions Recorded Cephalexin [Keflex] 500 mg PO Q12HR 7 Days #14 cap 09/19/19 predniSONE 10 mg PO DAILY 15 Days #45 tab 02/23/22 Allergies Allergy/AdvReac Type Severity Reaction Status Date / Time No Known Allergies Allergy Verified 02/13/24 12:35 Review of Systems ROS Statement: Those systems with pertinent positive or pertinent negative responses have been documented in the HPI. ROS Other: All systems not noted in ROS Statement are negative. Past Medical History Past Medical History: GERD/Reflux Additional Past Medical History / Comment(s): worsening GERD History of Any Multi-Drug Resistant Organisms: None Reported Past Surgical History: Tubal Ligation Additional Past Surgical History / Comment(s): Pilonidal cyst removal Past Anesthesia/Blood Transfusion Reactions: Motion Sickness, Postoperative Nausea & Vomiting (PONV) Past Psychological History: No Psychological Hx Reported Smoking Status: Never smoker Past Alcohol Use History: Occasional Past Drug Use History: None Reported - Past Family History Mother Family Medical History: Cancer Additional Family Medical History / Comment(s): BREAST CANCER, PTS GRANDMOTHER BREAST CANCER ALSO. General Exam Limitations: no limitations General appearance: alert, in no apparent distress Head exam: Present: atraumatic, normocephalic, normal inspection Eye exam: Present: normal appearance, PERRL, EOMI. Absent: scleral icterus, conjunctival injection, periorbital swelling ENT exam: Present: normal exam, mucous membranes moist Neck exam: Present: normal inspection. Absent: tenderness, meningismus, lymphadenopathy Respiratory exam: Present: normal lung sounds bilaterally. Absent: respiratory distress, wheezes, rales, rhonchi, stridor Cardiovascular Exam: Present: regular rate, normal rhythm, normal heart sounds. Absent: systolic murmur, diastolic murmur, rubs, gallop, clicks GI/Abdominal exam: Present: soft, normal bowel sounds. Absent: distended, tenderness, guarding, rebound, rigid Extremities exam: Present: normal inspection, full ROM, normal capillary refill. Absent: tenderness, pedal edema, joint swelling, calf tenderness Back exam: Present: normal inspection Neurological exam: Present: alert, oriented X3, CN II-XII intact Psychiatric exam: Present: normal affect, normal mood Skin exam: Present: warm, dry, intact, normal color. Absent: rash Course Vital Signs 02/13/24 02/13/24 12:32 14:11 Temperature 98 F Pulse Rate 91 86 Respiratory 18 16 Rate Blood Pressure 111/78 116/39 O2 Sat by Pulse 100 99 Oximetry Chest Pain MDM - MDM Was pt. sent in by a medical professional or institution (BARBARA Kelley, ANCHORMAN, urgent care, hospital, or assisted...) When possible be specific @ -No Did you speak to anyone other than the patient for history (EMS, parent, family, police, friend...)? What history was obtained from this source @ -No Did you review nursing and triage notes (agree or disagree)? Why? @ -I reviewed and agree with nursing and triage notes Were old charts reviewed (outside hosp., previous admission, EMS record, old EKG, old radiological studies, urgent care reports/EKG's, assisted records)? Report findings @ -No old charts were reviewed Differential Diagnosis (chest pain, altered mental status, abdominal pain women, abdominal pain men, vaginal bleeding, weakness, fever, dyspnea, syncope, headache, dizziness, GI bleed, back pain, seizure, CVA, palpatations, mental health, musculoskeletal)? @ -Pleurisy, costochondritis, PE, pneumonia EKG interpreted by me (3pts min.). @ -Yes and demonstrates sinus rhythm with rate of 87. WA interval 147. QRS 81. QTc of 377. No acute ST segment elevations or depressions X-rays interpreted by me (1pt min.). @ -Yes and demonstrates no acute process CT interpreted by me (1pt min.). @ -None done U/S interpreted by me (1pt. min.). @ -None done What testing was considered but not performed or refused? (CT, X-rays, U/S, labs)? Why? @ -None What meds were considered but not given or refused? Why? @ -None Did you discuss the management of the patient with other professionals (professionals i.e. , PA, ANCHORMAN, lab, RT, psych nurse, social media developer, marriage performer, teacher, [employer] officer, case operator)? Give summary @ -No Was smoking cessation discussed for >3mins.? @ -No Was critical care preformed (if so, how long)? @ -No Were there social determinants of health that impacted care today? How? (Homelessness, low income, unemployed, alcoholism, drug addiction, transportation, low edu. Level, literacy, decrease access to med. care, half-way, rehab)? @ -No Was there de-escalation of care discussed even if they declined (Discuss DNR or withdrawal of care, Hospice)? DNR status @ -No What co-morbidities impacted this encounter? (DM, HTN, Smoking, COPD, CAD, Cancer, CVA, ARF, Chemo, Hep., AIDS, mental health diagnosis, sleep apnea, morbid obesity)? @ -None Was patient admitted / discharged? Hospital course, mention meds given and route, prescriptions, significant lab abnormalities, going to OR and other pertinent info. @ -Upon arrival patient seen and evaluated in room 24. Thorough history and physical exam was performed. IV access was established. Laboratory studies were conducted. Chest x-ray was performed. Patient was given a dose of Toradol. Results are discussed with the patient. At this time the patient would be discharged home. Instructed to take Motrin 6 or milligrams every 6 hours. Follow-up with her primary care doctor for an echo and return for any new or worsening symptoms. Patient agreeable plan she was discharged in stable condition Undiagnosed new problem with uncertain prognosis? @ -No Drug Therapy requiring intensive monitoring for toxicity (Heparin, Nitro, Insulin, Cardizem)? @ -No Were any procedures done? @ -No Diagnosis/symptom? @ -Acute pleuritic chest pain Acute, or Chronic, or Acute on Chronic? @ -Acute Uncomplicated (without systemic symptoms) or Complicated (systemic symptoms)? @ -Complicated Side effects of treatment? @ -No Exacerbation, Progression, or Severe Exacerbation? @ -No Poses a threat to life or bodily function? How? (Chest pain, [place], [place], pneumonia, PE, COPD, DKA, ARF, appy, cholecystitis, CVA, Diverticulitis, Homicidal, Suicidal, threat to staff... and all critical care pts) @ -No Disposition Clinical Impression: Pleuritic chest pain Disposition: HOME SELF-CARE Condition: Stable Instructions (If sedation given, give patient instructions): Chest Pain (ED) Additional Instructions: Your testing in the emergency department was negative. Please follow-up with your primary care doctor for further workup to include an echo. Take Motrin 600 mg every 6 hours for pain control. Return for any new or worsening symptoms Is patient prescribed a controlled substance at d/c from ED?: No Referrals: Femi German MD [Primary Care Provider] - 1-2 days Time of Disposition: 13:59
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
[2024-02-13 13:20] LABS: ALT 14 U/L (4-34); AST 30 U/L (14-36); African American GFR (CKD) >90 (>60 ml/min/1.73 sqM); Albumin 4.4 g/dL (3.5-5.0); Alkaline Phosphatase 66 U/L (38-126); Anion Gap 6 mmol/L; Blood Urea Nitrogen 12 mg/dL (7-17); Calcium 9.9 mg/dL (8.4-10.2); Carbon Dioxide 26 mmol/L (22-30); Chloride 105 mmol/L (98-107); Glucose 90 mg/dL (74-99); Lipase 63 U/L (23-300); Magnesium 1.7 mg/dL (1.6-2.3); Non-African American GFR(CKD) >90 (>60 ml/min/1.73 sqM); Sodium 137 mmol/L (137-145); Total Bilirubin 0.9 mg/dL (0.2-1.3); Total Protein 7.2 g/dL (6.3-8.2)
[2024-02-13] MEDS: KETOROLAC 15 MG/ML 1 ML VIAL IVP STA (13:53)
[2024-02-13 14:12] VITALS: BP 116/39; PULSE 86; RESP 16
== END 2024-02-13 14:12 | disposition home or self-care (01) ==
LOC: EC 12:27
DX: R07.81 Pleurodynia (principal)
CPT/HCPCS: 36415; 71046; 80053; 83690; 83735; 84484; 85025; 85379; 87635; 93005; 96374; 99285

== ENCOUNTER 2024-03-16 15:39 | Emergency (ER) | payer BC, OTHER ==
[2024-03-16 15:50] VITALS: TEMP 98
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
[2024-03-16] MEDS: IBUPROFEN 800 MG TAB PO STA (16:18)
[2024-03-16] MEDS: ACETAMINOPHEN TAB 500 MG TAB PO STA (16:18)
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
[2024-03-16] MEDS: traMADol 50 MG TAB PO STA (20:39)
[2024-03-16] MEDS: traMADol 50 MG STARTER PACK 3 TAB BTL PO STA (20:39)
[2024-03-16 20:47] VITALS: BP 115/77; PULSE 100; RESP 18
== END 2024-03-16 20:47 | disposition home or self-care (01) ==
LOC: EC 15:39
CPT/HCPCS: 12031; 70450; 71045; 72125; 72170; 99283